=== PATIENT | female | born 1955 | race Caucasian/White ===

== ENCOUNTER → 2022-05-25 | Outpatient (CLI) | payer MEDICARE, SELFPAY ==
[2022-05-25] MEDS: Methacholine Chloride 18 ml neb kit INHALATION (13:13)
--- NOTE | 2022-05-27 08:01 | BRONCHALL ---
Bronchoprovocation Challenge Bronchoprovocation Challenge Bronchoprovocation Challenge: INTRODUCTION: The patient is a 67-year-old female that presents for a bronchoprovocation challenge secondary to a diagnosis of chronic cough. INTERPRETATION: Initial spirometry did not show any large airways obstructive ventilatory defect and preserved airflows throughout. The patient was then given progressively increasing doses of methacholine in a standardized fashion. At no point during testing did the patient's FEV1 drop to the threshold criteria to be considered a positive test. IMPRESSION: Negative methacholine inhalation challenge.
== END | disposition home or self-care (01) ==
PROVIDERS: PCP Family Medicine
DX: R05.3 Chronic cough (principal)
CPT/HCPCS: 94070; 95070

== ENCOUNTER 2022-12-20 09:04 | Day surgery (SDC) | payer MEDICARE, SELFPAY ==
--- NOTE | 2022-12-17 | IMM_PTH ---
PATIENT: SILVA LEBLANC LOC: EN U#:[id number] AGE/SX: 67/F ROOM: RE12/20/[address]: Dr. Devin Oneill DO : 1955 BED: DIS: 12/20/2022 SPEC #: [id number] RECD: 12/20/22 14:52 STATUS: FREEDOM REQ #: [id number] RU: 12/17/22 00:[address]: Devin Oneill DEPT: IMMUNOHISTOCHEMISTRY RECD BY: Romina Ponce ENTERED: 12/20/22 14:52 SP TYPE: IMMUNO OTHR DR: Dr. Timoteo Lemus MD Tissues: Gastric mucous membrane Procedures: H Pylori (initial) P53 (add) KI-67 (initial) PHYSICIAN & INSTITUTION [place] [id number] SPECIMEN INFORMATION: Tissue Source: B. Gastric antrum, C. Distal esophagus Clinical Info: GERD,cough Specimen Number: [id number] CPT code: 48890n8, 93915 METHODOLOGY: Deparaffinized sections of prefer/formalin-fixed tissue or PAP/DQ stained slides are incubated with monoclonal/polyclonal antibodies/oligonucleotide probes. Localization is made via biotin free immunoperoxidase method. Appropriate controls are performed and reacted as expected. Results on target cell population are indicated in the following table: RESULTS: ANTIBODY / CLONE RESULT Block B H Pylori (polyclonal) negative Block C P53 (DO-7) negative, wild type Ki-67 (30-9) negative These tests were developed and their performance characteristics determined by [facility]. They may not have been cleared or approved by the U.S. Food and Drug Administration. The FDA has determined that such clearance or approval is not necessary. The above immunohistochemical/dualISH markers are ordered and reviewed by the Pathologist. INTERPRETATION: B. Gastric antrum, biopsy: Negative for Helicobacter pylori organisms. C. Esophageal mucosa, biopsy: No evidence of dysplasia AM:mark 12/22/22
[2022-12-20 09:36] VITALS: BP 123/91; PULSE 89; RESP 16; TEMP 36.7; O2SAT 95; BMI 26.4
--- NOTE | 2022-12-20 09:51 | PCM.HP.BLA ---
History and Physical Date of Admission: 12/20/22 SILVA LEBLANC, is a 67 F who presents to the office today for chronic cough. Cough started at least 2 yrs ago. She was referred by [facility] Pulmonology to be evaluated for the possibility of GERD or EOE or other GI issue as cause of cough. Not usually productive, no hemoptysis. She ran out of rx PPI at the end of August, it controlled the epigastric burning but not the cough. Now takes famotidine 20 mg since running out of PPI, typically takes it once a day, it is effective unless she has red sauce and wine. No dysphagia. No nausea, vomiting. No abdominal pain. No diarrhea, constipation, melena, hematochezia. She is overdue for colonoscopy, was due 2 yrs ago for 10-yr colonoscopy. ROS Const Constitutional: No fatigue ENT ENT: No difficulty swallowing Gastro GI: Positive for bloating, heartburn and excessive flatus; No abdominal pain, belching, change in bowel habits, change in stool character, coffee ground emesis, constipation, cramping, diarrhea, difficulty swallowing, feeling full early, incontinent of stools, Vomiting blood/hematemesis, Blood in stool, loose stools, Black,tarry stools, nausea/dyspepsia, pain with swallowing, vomiting or other Musc Musculoskeletal: Positive for joint pain, joint swelling, stiffness and Arthritis Skin Skin: No yellowing of the eye or itchy eyes Psych Psychiatric: No anxiety and No depression Endo Endocrine: No fatigue Aller/Imm Allergy/Immunologic: No itchy eyes Evelio/Lymp Hematologic/Lymphatic: Positive for easy bruising; No easy bleeding Exam Const General: cooperative, healthy appearing and comfortable Orientation: alert, awake and oriented x3 Resp Effort & Inspection: normal respiratory effort Other: intermittent cough Quality Reporting Tobacco Screening ([facility]) Smoking Status: Former smoker Assessment and Plan Assessment and Plan (1) GERD (gastroesophageal reflux disease): Status: Chronic Plan: 67 yr old female with chronic cough, ?due to reflux or EOE EGD as well as screening colonoscopy Continue famotidine for heartburn/epigastric burning, cough didn't resolve on PPI (2) Cough: Status: Chronic Plan: as above I have examined the patient and the H&P has been reviewed. There are no clinical changes since date of exam.
--- NOTE | 2022-12-20 10:15 | EGD_PTH ---
PATIENT: SILVA LEBLANC LOC: EN U#:[id number] AGE/SX: 67/F ROOM: RE12/20/[address]: Dr. Devin Oneill DO : 1955 BED: DIS: 12/20/2022 SPEC #: [id number] RECD: 12/20/22 10:55 STATUS: FREEDOM RELaina #: [id number] RU: 12/20/22 10:[address]: Devin Oneill DEPT: SURGICAL PATHOLOGY RECD BY: Nicky Choi ENTERED: 12/20/22 11:42 SP TYPE: EGD BIOPSY OT DR: Dr. Timoteo Lemus MD Tissues: A - Duodenum, NOS B - Gastric mucous membrane C - Esophagus, NOS Procedures: Special Stain Group II Surgery Specimen Level IV Alcian Blue/PAS (control) HEADER OPERATION: Colonoscopy, EGD biopsy PRE-OP DIAGNOSIS: GERD, Cough TISSUE SUBMITTED: A. Duodenum, B. Gastric antrum, C. Distal esophagus MICROSCOPIC DIAGNOSIS A. Duodenum, biopsy: No pathologic change. B. Gastric antrum, biopsy: Chronic gastritis. See Comment. C. Distal esophagus, biopsy: Gastro esophageal junction with chronic inflammation. Focal goblet cell metaplasia. No evidence of dysplasia. See Comment. AM;am 12/21/22 COMMENT B. Results for H.pylori organism ([id number]) will be reported separately. C. Alcian blue stain with matched control supports the diagnosis. Immunohistochemistry ([id number]) supports the diagnosis. MICROSCOPIC DESCRIPTION Slides are reviewed. GROSS DESCRIPTION A. Received is one container labeled with the patient name and designated duodenum. The specimen consists of two irregular fragments of light muir soft tissue that in aggregate measure 0.6 x0.3] x 0.1 cm. The specimen is totally submitted in one cassette. B. Received is one container labeled with the patient name and designated gastric antrum. The specimen consists of two irregular fragments of light muir soft tissue that in aggregate measure 0.8 x 0.3 x 0.1 cm. The specimen is totally submitted in one cassette. C. Received is one container labeled with the patient name and designated distal esophagus. The specimen consists of two irregular fragments of light muir soft tissue that in aggregate measure 0.8 x 0.4 x 0.1 cm. The specimen is totally submitted in one cassette. / 12/20/22 CPT:63334j7, 59337
[2022-12-20 10:50] VITALS: BP 105/64; BP 123/91; PULSE 86; RESP 18; TEMP 36.2; O2SAT 99
[2022-12-20 10:55] VITALS: BP 109/59; BP 123/91; PULSE 88; RESP 18; O2SAT 98
--- NOTE | 2022-12-20 10:58 | OP.CCLET_ITS ---
12/20/2022 Timoteo Lemus Re : Upper GI endoscopy procedure for Cata Khalil Allan This procedure was performed on Tuesday, December 20, 2022. My impressions and recommendations are as follows: Impressions : - Z-line irregular, 38 cm from the incisors. Biopsied. - Erythematous mucosa in the gastric body and antrum. Biopsied. - No gross lesions in the duodenal bulb. Biopsied. Recommendations : - Discharge patient to home. - Resume previous diet. - Continue present medications. - Await pathology results. - Food allergy testing My findings are described in the full procedure note, which is enclosed. If I can be of further assistance, please feel free to contact me at . Sincerely, Devin Oneill, 12/20/2022 10:57:51 AM This report has been signed electronically.
--- NOTE | 2022-12-20 10:58 | OP.EGD_ITS ---
Patient Name: Cata Castro Procedure Date: 12/20/2022 10:20 AM Date of : 1955 Age: 67 Procedure: Upper GI endoscopy Indications: Chronic cough Providers: Devin Oneill DO Medicines: Monitored Anesthesia Care Patient Profile: This is a 67 year old female. Refer to note in patient chart for documentation of history and physical. Patient has symptoms. Complications: No immediate complications. Procedure: Pre-Anesthesia Assessment: - Prior to the procedure, a History and Physical was performed, and patient medications and allergies were reviewed. The patient is competent. The risks and benefits of the procedure and the sedation options and risks were discussed with the patient. All questions were answered and informed consent was obtained. Patient identification and proposed procedure were verified by the physician. Mental Status Examination: normal. Prophylactic Antibiotics: The patient does not require prophylactic antibiotics. Prior Anticoagulants: The patient has taken no previous anticoagulant or antiplatelet agents. After reviewing the risks and benefits, the patient was deemed in satisfactory condition to undergo the procedure. The anesthesia plan was to use monitored anesthesia care (MAC). Immediately prior to administration of medications, the patient was re-assessed for adequacy to receive sedatives. The heart rate, respiratory rate, oxygen saturations, blood pressure, adequacy of pulmonary ventilation, and response to care were monitored throughout the procedure. The physical status of the patient was re-assessed after the procedure. After obtaining informed consent, the endoscope was passed under direct vision. Throughout the procedure, the patient's blood pressure, pulse, and oxygen saturations were monitored continuously. The pediatric colonoscope was introduced through the mouth, and advanced to the second part of duodenum. The upper GI endoscopy was accomplished without difficulty. The patient tolerated the procedure well. Scope In: 10:31:14 AM Scope Out: 10:35:09 AM Total Procedure Duration Time 0 hours 3 minutes 55 seconds Findings: The Z-line was irregular and was found 38 cm from the incisors. Biopsies were taken with a cold forceps for histology. Verification of patient identification for the specimen was done. Patchy mildly erythematous mucosa without bleeding was found in the gastric body and in the gastric antrum. Biopsies were taken with a cold forceps for histology. Verification of patient identification for the specimen was done. Estimated blood loss was minimal. No gross lesions were noted in the duodenal bulb. Biopsies were taken with a cold forceps for histology. Verification of patient identification for the specimen was done by the physician. Estimated blood loss was minimal. Impression: - Z-line irregular, 38 cm from the incisors. Biopsied. - Erythematous mucosa in the gastric body and antrum. Biopsied. - No gross lesions in the duodenal bulb. Biopsied. Recommendation: - Discharge patient to home. - Resume previous diet. - Continue present medications. - Await pathology results. - Food allergy testing Procedure Code(s): --- Professional --- 56548, Esophagogastroduodenoscopy, flexible, transoral; with biopsy, single or multiple CPT copyright 2017 [employer] [place] [employer]. All rights reserved. The codes documented in this report are preliminary and upon inpatient coder review may be revised to meet current compliance requirements. Devin Oneill DO 12/20/2022 10:57:51 AM This report has been signed electronically. Number of Addenda: 0 Note Initiated On: 12/20/2022 10:20 AM
[2022-12-20 11:00] VITALS: BP 110/64; BP 123/91; PULSE 86; RESP 18; O2SAT 95
--- NOTE | 2022-12-20 11:00 | OP.CCLET_ITS ---
12/20/2022 Timoteo Lemus Re : Colonoscopy procedure for Cata Castro Deajessenia Lemus This procedure was performed on Tuesday, December 20, 2022. My impressions and recommendations are as follows: Impressions : - Diverticulosis in the recto-sigmoid colon, in the sigmoid colon and in the descending colon. - The examination was otherwise normal on direct and retroflexion views. - No specimens collected. Recommendations : - Discharge patient to home. - Resume previous diet. - Continue present medications. - Repeat colonoscopy in 10 years for surveillance. My findings are described in the full procedure note, which is enclosed. If I can be of further assistance, please feel free to contact me at . Sincerely, Devin Oneill, 12/20/2022 11:00:01 AM This report has been signed electronically.
--- NOTE | 2022-12-20 11:00 | OP.COLON_ITS ---
Patient Name: Cata Castro Procedure Date: 12/20/2022 10:35 AM Date of : 1955 Age: 67 Procedure: Colonoscopy Indications: Screening for colorectal malignant neoplasm Providers: Devin Oneill DO Medicines: Monitored Anesthesia Care Patient Profile: This is a 67 year old female. Refer to note in patient chart for documentation of history and physical. Patient has symptoms. Last Colonoscopy: more than 10 years ago. Complications: No immediate complications. Procedure: Pre-Anesthesia Assessment: - Prior to the procedure, a History and Physical was performed, and patient medications and allergies were reviewed. The patient is competent. The risks and benefits of the procedure and the sedation options and risks were discussed with the patient. All questions were answered and informed consent was obtained. Patient identification and proposed procedure were verified by the physician. Mental Status Examination: normal. Prophylactic Antibiotics: The patient does not require prophylactic antibiotics. Prior Anticoagulants: The patient has taken no previous anticoagulant or antiplatelet agents. After reviewing the risks and benefits, the patient was deemed in satisfactory condition to undergo the procedure. The anesthesia plan was to use monitored anesthesia care (MAC). Immediately prior to administration of medications, the patient was re-assessed for adequacy to receive sedatives. The heart rate, respiratory rate, oxygen saturations, blood pressure, adequacy of pulmonary ventilation, and response to care were monitored throughout the procedure. The physical status of the patient was re-assessed after the procedure. After I obtained informed consent, the scope was passed under direct vision. Throughout the procedure, the patient's blood pressure, pulse, and oxygen saturations were monitored continuously. The pediatric colonoscope was introduced through the anus and advanced to the cecum, identified by appendiceal orifice and ileocecal valve. The colonoscopy was performed without difficulty. The patient tolerated the procedure well. The quality of the bowel preparation was adequate. Scope In: 10:36:53 AM Scope Withdrawal Time 0 hours 6 minutes 42 seconds Scope Out: 10:46:15 AM Total Procedure Duration Time 0 hours 9 minutes 22 seconds Findings: The perianal and digital rectal examinations were normal. Multiple small and large-mouthed diverticula were found in the recto-sigmoid colon, sigmoid colon and descending colon. The exam was otherwise without abnormality on direct and retroflexion views. Impression: - Diverticulosis in the recto-sigmoid colon, in the sigmoid colon and in the descending colon. - The examination was otherwise normal on direct and retroflexion views. - No specimens collected. Recommendation: - Discharge patient to home. - Resume previous diet. - Continue present medications. - Repeat colonoscopy in 10 years for surveillance. Procedure Code(s): --- Professional --- G0121, Colorectal cancer screening; colonoscopy on individual not meeting criteria for high risk CPT copyright 2017 [employer]. All rights reserved. The codes documented in this report are preliminary and upon master planner review may be revised to meet current compliance requirements. Devin Oneill DO 12/20/2022 11:00:01 AM This report has been signed electronically. Number of Addenda: 0 Note Initiated On: 12/20/2022 10:35 AM
[2022-12-20 11:06] VITALS: BP 123/91; BP 124/72; PULSE 87; RESP 18; TEMP 36.5; O2SAT 97
[2022-12-20 11:10] VITALS: BP 123/91
[2022-12-20 13:17] LABS: Erythrocyte Sedimentation Rate 8 mm/hr (0-30)
[2022-12-20 13:20] LABS: CRP 6.77 mg/L (0.0-3.0)
[2022-12-21 14:09] LABS: Cytoplasmic Ab (C-ANCA) <1:20 titer (Neg:<1:20); Perinuclear Ab (P-ANCA) <1:20 titer (Neg:<1:20)
[2022-12-23 00:07] LABS: Anti-Centromere B Ab <0.2 AI (0.0-0.9); Anti-Chromatin <0.2 AI (0.0-0.9); Anti-Jo <0.2 AI (0.0-0.9); Anti-Scleroderma-70 AB <0.2 AI (0.0-0.9); Anti-dsDNA Ab 1 IU/mL (0-9); Beef <0.10 kU/L (Class 0); Chocolate <0.10 kU/L (Class 0); Corn <0.10 kU/L (Class 0); Egg, Whole <0.10 kU/L (Class 0); Milk (Cow) <0.10 kU/L (Class 0); Peanut 0.15 kU/L (Class 0/I); Pork <0.10 kU/L (Class 0); RNP Ab <0.2 AI (0.0-0.9); SJOGREN'S Anti-SS-A test 0.2 AI (0.0-0.9); SJOGREN'S Anti-SS-B test < 0.2 AI (0.0-0.9); Smith Ab <0.2 AI (0.0-0.9); Soybean <0.10 kU/L (Class 0); Wheat <0.10 kU/L (Class 0)
== END 2022-12-20 11:25 | disposition home or self-care (01) ==
LOC: EN 09:09 → AC 09:26
PROVIDERS: PCP Family Medicine; Referring Provider Family Medicine; Visit Provider Internal Medicine Gastroenterology
PROC: 0DJD8ZZ Inspection of Lower Intestinal Tract, Via Natural or Artificial Opening Endoscopic (ICD-10-PCS; CPT 45378; principal; 2022-12-20 10:10)
DX: Z12.11 Encounter for screening for malignant neoplasm of colon (principal); K21.00 Gastro-esophageal reflux disease with esophagitis, without bleeding; K57.30 Diverticulosis of large intestine without perforation or abscess without bleeding; Z87.891 Personal history of nicotine dependence; K29.50 Unspecified chronic gastritis without bleeding; K22.70 Barrett's esophagus without dysplasia; Z79.899 Other long term (current) drug therapy; E03.9 Hypothyroidism, unspecified; Z79.890 Hormone replacement therapy; Z90.49 Acquired absence of other specified parts of digestive tract
CPT/HCPCS: G0121; 43239; 36415; 85652; 86003; 86005; 86140; 86225; 86235; 86256; 88305; 88313; 88341; 88342; J7120; J2405

== ENCOUNTER 2024-05-20 23:19 | Emergency (ER) | payer MEDICARE, SELFPAY ==
[2024-05-20 23:20] VITALS: BP 163/105; PULSE 116; RESP 22; TEMP 36.6; O2SAT 98; BMI 28.4
[2024-05-20 23:25] VITALS: BP 163/105; PULSE 112; RESP 21; TEMP 36.6; O2SAT 97
[2024-05-20 23:50] VITALS: PULSE 111; RESP 21; O2SAT 96
--- NOTE | 2024-05-20 23:50 | EKG12_ITS ---
Test Reason : DYSP Blood Pressure : */* mmHG Vent. Rate : 115 BPM Atrial Rate : 115 BPM P-R Int : 202 ms QRS Dur : 80 ms QT Int : 312 ms P-R-T Axes : 56 7 52 degrees QTcB Int : 431 ms Sinus tachycardia Otherwise normal ECG Confirmed by KEN MOLINA, RIKA ([id number]), tape editor ANANDA IBARRA ([id number]) on 05/22/2024 8:05:11 AM Referred By: Confirmed By: RIKA ROGERS MD
--- NOTE | 2024-05-20 23:50 | CT_ITS ---
STUDY: CTA CHEST REASON FOR EXAM: Female, 69 years old patient with questionable pulmonary embolus (PE) RADIATION DOSAGE (If Supplied By Facility): CTDIvol = ( 6.54 ) mGy, DLP = ( 271.86 ) mGycm TECHNIQUE: The examination was performed with the intravenous administration of 100 mL of IV Isovue 370. Post-processing of the angiographic images was performed, with multiplanar reformation and 3D reconstruction. Individualized dose optimization techniques were used for this CT. COMPARISON: CT chest dated June 11, 2009. FINDINGS: Normal enhancement of the main pulmonary artery and right and left pulmonary arteries. Normal enhancement of the bilateral peripheral pulmonary arteries. There is no demonstrated pulmonary embolism. Normal thoracic aorta and visualized great vessels. There is no demonstrated aortic dissection. Normal heart and pericardium. Normal mediastinum. Normal hilar regions. Normal visualized trachea and bronchi. The lungs are well expanded. There is a right middle lobe pulmonary nodule measuring 7.5 mm in size. There is slightly larger than it was on the previous CT. The lungs otherwise appear to be clear. Normal pleura. Normal chest wall structures. Normal osseous structures. There are gallstones. CT/CTA Chest W/WO Contrast IMPRESSION: 1. No CTA demonstrated pulmonary embolism or arterial dissection. 2. Cholelithiasis. 3. Right middle lobe nodule. Suggest follow-up as per Fleischner''s criteria. Fleischner Society Recommendations for Follow-up and Management of Nodules Smaller than 8 mm Detected Incidentally at Nonscreening CT. Nodule size > 6-8 mm: Low-Risk Patient - Initial follow-up CT at 6-12 months then at 18-24 months if no change. High-Risk Patient - Initial follow-up CT at 3-6 months then at 9-12 and 24 months if no change. Low-Risk = Minimal or absent history of smoking and of other known risk factors. 1. High-Risk = History of smoking or of other known risk factors. Electronically Signed: Rachael Milton MD at 1:39 EST ,
[2024-05-20] MEDS: Aspirin 325 MG Tablet PO (23:58)
[2024-05-21] VITALS (22 sets, daily range): BP systolic 105–138; BP diastolic 54–80; PULSE 92–122; RESP 9–27; TEMP 36.5–36.7; O2SAT 94–97
[2024-05-21 00:02] LABS: Absolute Lymphocyte Count 1.43 X10^3/uL (0.83-4.51); Basophil# 0.04 X10^3/uL; Basophil% 0.3 % (0-1); Eosinophil# 0.14 X10^3/uL; Hematocrit 37.4 % (37-47); Hemoglobin 12.4 g/dL (12.0-15.0); Lymphocyte # 1.43 X10^3/ul (0.83-4.51); Lymphocyte % 9.8 % (19-41); Mean Corp Hgb Conc 33.2 g/dL (32-36); Mean Corpuscular Hgb 30.2 pg (27.0-32.0); Mean Corpuscular Volume 91.2 fL (81-99); Monocyte# 0.74 X10^3/uL; Monocyte% 5.1 % (0-10); NRBC Flagged by Analyzer 0 % (0-5); Platelet Count 282 K/mm3 (150-450); RBC Distribution Width CV 13.1 % (11.6-14.6); RBC Distribution Width SD 43.4 fl (35.1-43.9); White Blood Count 14.6 K/mm3 (4.4-11.0)
[2024-05-21] MEDS: Nitroglycerin SL (ED/IMG/CATH) 0.4 MG TABLET SL ×2 (00:03→00:09)
[2024-05-21 00:11] LABS: Partial Thromboplast Time 23.3 Seconds (24.1-36.2)
[2024-05-21 00:19] LABS: Anion Gap 8 (5-15); BUN 19 mg/dL (7-18); BUN/Creat Ratio 20.4 RATIO (10-20); Calcium,Total 9.4 mg/dL (8.5-10.1); Chloride 104 mmol/L (98-107); Creatinine, Serum 0.93 mg/dL (0.55-1.02); EST Glomerular Filtration Rate 63 mL/min (>60); Est Glom Filt Rate - Afr Amer 77 mL/min (>60); Glucose 136 mg/dL (74-106); Magnesium 1.9 mg/dL (1.6-2.6); Potassium 3.7 mmol/L (3.5-5.1); Sodium Level 138 mmol/L (136-145); Troponin-I HS < 3 pg/mL (3.0-54.0)
[2024-05-21 00:44] LABS: BNP,B-Type NATRIURETIC PEPTIDE 25.7 pg/mL (0-100)
[2024-05-21 02:04] LABS: Troponin-I HS < 3 pg/mL (3.0-54.0)
--- NOTE | 2024-05-21 02:06 | EX.ED.DYSGE1 ---
HPI History of Present Illness Chief Complaint: Shortness of Breath Informant: patient and spouse/S.O. Narrative Narrative: Patient is a 69-year-old female with past medical history of GERD and hypothyroidism as well as known pulmonary nodules. She states she was at home this evening when she noticed a sensation of shortness of breath. She states it felt like she cannot take a deep breath in. She states that she noticed some pain in the lower throat/upper chest and folic it radiated towards her right arm. She denies any previous history of cardiovascular disease and she denies any previous history of DVT or PE. She states she has not been sick in any way and denies any history of asthma or emphysema or COPD. However as she had persistent shortness of breath she was concerned this could be cardiac in nature and therefore comes in for evaluation [facility] Medical History (Updated 05/21/24 @ 07:[address] Mauri Pemberton, DO) Wears partial dentures Wears glasses Post-menopausal Alcohol use Arthritis Anemia Easy bruising Injury of back Gastric reflux Pulmonary scarring Former smoker Hx of thyroid irradiation History of edema History of stress test Lung nodules Cough Vitamin D deficiency Venous insufficiency Osteopenia Nephrolithiasis Hypothyroidism Migraine Graves disease GERD (gastroesophageal reflux disease) Fibrocystic breast disease Home Medications ?Medication ?Instructions ?Recorded ?Last Taken ?Type omeprazole 20 mg capsule,delayed 20 mg PO DAILY 07/16/22 Unknown History release thyroid (pork) 15 mg tablet 15 mg PO DAILY 07/16/22 Unknown History ([place] Thyroid) thyroid (pork) 30 mg tablet 30 mg PO BID 07/16/22 Unknown History ([place] Thyroid) cetirizine 10 mg tablet 10 mg PO DAILY PRN allergy symptoms 12/16/22 Unknown History lactobacillus combination no.4 3 3,000 mmu cells PO DAILY 12/16/22 Unknown History billion cell capsule (Probiotic) multivitamin (Daily Multi-Vitamin 1 tab PO DAILY 12/16/22 Unknown History tablet) cholecalciferol (vitamin D3) 25 50 mcg PO DAILY 05/20/24 Unknown History mcg (1,000 unit) capsule (Vitamin D3) ondansetron 4 mg disintegrating 4 mg PO TID PRN nausea and 05/21/24 Unknown Rx tablet vomiting #21 tabs oxycodone 5 mg tablet 5 mg PO Q6H PRN pain 3 days #12 12/09/24 Unknown Rx tabs Allergy/AdvReac Type Severity Reaction Status Date / Time sodium hypochlorite solution Allergy Severe Anaphylaxis Verified 05/21/24 00:22 levofloxacin (From Levaquin) AdvReac Severe GI UPSET Verified 05/20/24 23:20 Surgical History History of esophagogastroduodenoscopy (EGD) Hx of colonoscopy Hx of oral surgery Hx of breast biopsy Hx of appendectomy Social History Smoking Status: Former smoker how long ago did patient quit smokin YRS alcohol intake: current alcohol intake frequency: holidays/special occasions only ROS ROS ED Constitutional Constitutional ED: Denies chills or fever(s) Eyes Eyes: Denies blurry vision or change in vision ENT ENT ED: Denies rhinorrhea or sore throat Cardiovascular Cardiovascular: Denies chest pain, palpitations or racing heartbeat Respiratory/Chest Respiratory/Chest: Reports dyspnea; Denies cough Gastrointestinal Gastrointestinal: Denies abdominal pain, diarrhea, nausea or vomiting Genitourinary Genitourinary ED: Denies dysuria Musculoskeletal Musculoskeletal: Denies back pain Integumentary Denies rash Neurologic Neurologic: Denies headache(s) Hematologic/Lymphatic Hematologic/Lymphatic: Denies easy bleeding or easy bruising EXAM Physical Exam Const Vital Signs: 05/20/24 23:20 05/20/24 23:25 05/20/24 23:28 Temperature 98 F 98 F Temperature Source Oral Oral Pulse Rate 116 H 112 H Respiratory Rate 22 H 21 H Respiratory Effort Short of Breath Blood Pressure 163/105 H 163/105 H Blood Pressure Mean 124 124 Pulse Ox 98 97 Oxygen Delivery Method Room Air Room Air 05/20/24 23:50 05/21/24 00:00 05/21/24 00:02 Temperature Temperature Source Pulse Rate 111 H 108 H 103 H Respiratory Rate 21 H 14 12 Respiratory Effort Blood Pressure 137/80 H Blood Pressure Mean 96 Pulse Ox 96 96 Oxygen Delivery Method 05/21/24 00:03 05/21/24 00:03 05/21/24 00:05 Temperature Temperature Source Pulse Rate 105 H 105 H 117 H Respiratory Rate 16 24 H Respiratory Effort Blood Pressure 137/80 H 138/73 H 133/74 H Blood Pressure Mean 92 93 Pulse Ox 96 95 Oxygen Delivery Method 05/21/24 00:07 05/21/24 00:09 05/21/24 00:10 Temperature Temperature Source Pulse Rate 120 H 102 H Respiratory Rate 27 H Respiratory Effort Blood Pressure 117/72 117/72 131/67 H Blood Pressure Mean 81 85 Pulse Ox 96 Oxygen Delivery Method 05/21/24 00:13 05/21/24 00:18 05/21/24 00:25 Temperature 98.1 F Temperature Source Oral Pulse Rate 119 H 122 H 110 H Respiratory Rate 18 26 H 19 H Respiratory Effort Blood Pressure 117/76 117/76 Blood Pressure Mean 88 89 Pulse Ox 96 97 Oxygen Delivery Method Room Air 05/21/24 00:30 05/21/24 00:32 05/21/24 00:45 Temperature Temperature Source Pulse Rate 102 H 98 Respiratory Rate 17 18 Respiratory Effort Blood Pressure 113/66 115/63 Blood Pressure Mean 74 77 Pulse Ox 95 96 Oxygen Delivery Method 05/21/24 01:00 05/21/24 01:00 05/21/24 01:17 Temperature 97.7 F L Temperature Source Oral Pulse Rate 97 105 H Respiratory Rate 12 16 Respiratory Effort Blood Pressure 105/68 105/68 Blood Pressure Mean 80 80 Pulse Ox 95 97 97 Oxygen Delivery Method Room Air 05/21/24 01:30 05/21/24 01:45 05/21/24 02:00 Temperature 97.9 F Temperature Source Oral Pulse Rate 98 99 93 Respiratory Rate 24 H 12 22 H Respiratory Effort Blood Pressure 128/54 H Blood Pressure Mean 78 Pulse Ox 94 96 95 Oxygen Delivery Method Room Air 05/21/24 02:00 05/21/24 02:15 05/21/24 02:30 Temperature Temperature Source Pulse Rate 99 92 93 Respiratory Rate 22 H 9 L 26 H Respiratory Effort Blood Pressure Blood Pressure Mean Pulse Ox 94 97 95 Oxygen Delivery Method 05/21/24 02:36 05/21/24 02:39 Temperature 97.7 F L Temperature Source Pulse Rate 93 100 Respiratory Rate 13 21 H Respiratory Effort Blood Pressure 128/54 H 128/54 H Blood Pressure Mean 74 78 Pulse Ox 96 96 Oxygen Delivery Method Positive well nourished and well developed General Appearance ED: well developed; Negative for pallor HEENT Reports moist mucous membranes HEENT Narrative: No tongue or lip swelling no oral lesions no airway edema or compromise No trismus or change in voice or difficulty with secretions no obvious abscess noted Eyes PERRL and EOMs intact bilaterally Neck supple and no JVD Neck Narrative: No nuchal rigidity or meningeal signs No crepitance palpated Chest Wall palpation of chest normal Resp normal respiratory effort and clear to auscultation bilaterally Resp Narrative: Breath sounds are diminished throughout but overall clear to auscultation Cardio regular rate and regular rhythm Rate: other Other Details: Heart is regular rate and rhythm without murmurs rubs or gallop Radial and carotid pulses are equal and symmetric GI normal to inspection, nondistended, normoactive bowel sounds, non-tender, non-distended and no masses GI Narrative: No voluntary guarding or rigidity or pulsatile mass Auscultation: normoactive bowel sounds Palpation: soft Extremity normal to inspection Extremity Narrative: No asymmetric edema no pitting edema negative Homans' sign bilaterally Neuro oriented x3, CN's II-XII intact bilaterally and no sensory deficits noted Sensorium / Orientation: alert Motor Exam: strength 5/5 throughout Psych mental status grossly normal Skin no rashes or lesions noted General Skin Exam: Negative for jaundice or pallor MDM MDM MDM Narrative Medical decision making narrative: Patient arrived to the ER hypertensive and tachycardic but otherwise with stable vitals. She reported sensation of shortness of breath with some lower throat/upper chest discomfort radiating into her right arm. There is concern this could be related to atypical cardiovascular disease. Patient also could have potential pneumonia pneumothorax pleural effusion or pulmonary embolus. Secondary to this basic blood work was obtained. With her known history of pulmonary nodules and her shortness of breath sensation I did elect to perform a CTA of the chest to rule out PE dissection pneumonia or pneumothorax. CTA revealed her chronic pulmonary nodules but otherwise no PE or dissection or pneumonia. It did incidentally note gallstones but did not mention any signs of gallbladder wall thickening or pericholecystic fluid. The patient's white count is elevated at 14.6 but she is afebrile and this very well could be stress response as CT of the chest reveals no signs of infection. Also had low concern for acute cholecystitis despite her white count and CT reading of gallstones as she does not have any abdominal pain with palpation and her liver enzymes are normal. The patient's initial and delta troponin were less than 3 going against acute coronary syndrome. Therefore at this time as patient does not have signs of ischemia on her EKG PE and dissection have been ruled out with CTA and her troponins are normal I do not feel there is need to keep her in the hospital. I cannot perform a gallbladder ultrasound at this time of night but as this is a potentially atypical presentation for biliary colic she will be given a order form to have an ultrasound done as an outpatient. This plan of care was discussed with both the patient and and they are agreeable to it History & Record Review Discussion w/independent historian: Patient and Significant other Lab Data Attestation: I reviewed the patient's lab results. Labs: Laboratory Results - last 24 hr 05/20/24 05/21/24 23:27 01:37 WBC 14.6 H RBC 4.10 L Hgb 12.4 Hct 37.4 MCV 91.2 MCH 30.2 MCHC 33.2 RDW Std Deviation 43.4 RDW Coeff of Omar 13.1 Plt Count 282 MPV 10.0 Immature Gran % (Auto) 1.800 H Neut % (Auto) 82.0 H Lymph % (Auto) 9.8 L [place] % (Auto) 5.1 Eos % (Auto) 1.0 Baso % (Auto) 0.3 Absolute Neuts (auto) 12.0 H Absolute Lymphs (auto) 1.43 Nucleated RBC % 0 PT 13.0 INR 1.0 APTT 23.3 L Sodium 138 Potassium 3.7 Chloride 104 Carbon Dioxide 26.0 Anion Gap 8 BUN 19 H Creatinine 0.93 Estim Creat Clear Calc 58.80 Est GFR (MDRD) Af Amer 77 Est GFR (MDRD) Non-Af 63 BUN/Creatinine Ratio 20.4 H Glucose 136 H Calcium 9.4 Magnesium 1.9 Total Bilirubin 0.90 Direct Bilirubin 0.12 AST 41 H ALT 18 Alkaline Phosphatase 92 Troponin I High Sens < 3 L < 3 L B-Natriuretic Peptide 25.7 Total Protein 7.1 Albumin 3.3 Globulin 3.8 Lipase < 10 L Radiography Diagnostic Testing: Clinical Impression(s) from Imaging Studies Chest CTA 05/20/24 23:50 IMPRESSION: 1. No CTA demonstrated pulmonary embolism or arterial dissection. 2. Cholelithiasis. 3. Right middle lobe nodule. Suggest follow-up as per Fleischner''s criteria. Fleischner Society Recommendations for Follow-up and Management of Nodules Smaller than 8 mm Detected Incidentally at Nonscreening CT. Nodule size > 6-8 mm: Low-Risk Patient - Initial follow-up CT at 6-12 months then at 18-24 months if no change. High-Risk Patient - Initial follow-up CT at 3-6 months then at 9-12 and 24 months if no change. Low-Risk = Minimal or absent history of smoking and of other known risk factors. 1. High-Risk = History of smoking or of other known risk factors. Electronically Signed: Rachael Milton MD at 1:39 EST , Discharge Plan Triage Chief Complaint: Shortness of Breath ED Provider: Mauri Pemberton Dx/Rx/DC Orders Clinical Impression: Cholelithiasis, Dyspnea, Pulmonary nodule, GERD (gastroesophageal reflux disease) Instructions: Gallstones Dc, ED Dyspnea Prescriptions: New oxycodone 5 mg tablet 5 mg PO Q6H PRN (Reason: pain) 3 Days Qty: 12 0RF ondansetron 4 mg tablet,disintegrating 4 mg PO TID PRN (Reason: nausea and vomiting) Qty: 21 0RF No Action omeprazole 20 mg capsule,delayed release(DR/EC) 20 mg PO DAILY thyroid (pork) [[place] Thyroid] 30 mg tablet 30 mg PO BID thyroid (pork) [[place] Thyroid] 15 mg tablet 15 mg PO DAILY Patient Comments: take with 30 mg in morning multivitamin [Daily Multi-Vitamin] Tablet 1 tab PO DAILY Probiotic 3 billion cell capsule 3,000 mmu cells PO DAILY Rx Instructions: administer with a meal cetirizine 10 mg tablet 10 mg PO DAILY PRN (Reason: allergy symptoms) Patient Comments: take 1 tablet by mouth once daily cholecalciferol (vitamin D3) [Vitamin D3] 25 mcg (1,000 unit) capsule 50 mcg PO DAILY Other Ambulatory Orders: Gallbladder (Routine) Facility: [facility] - Location: [facility] Ordered By: Dr. Mauri Pemberton Primary Care Provider: Timoteo Lemus Referrals: Timoteo Lemus MD [Primary Care Provider] - Activity Restrictions/Additional Instructions: Your workup today showed no sign of lung infection such as pneumonia no blood clot or hole in the lung. There were no findings of cardiac damage. It did show gallstones and your symptoms may be secondary to this. Therefore obtain your outpatient gallbladder ultrasound to further assess your gallbladder and return to the ER should you have any further concerns or worsening of symptoms Print Language: [place] Disposition Disposition: Home, Self Care Discharge Date/Time: 05/21/24 02:49
[2024-05-21 02:23] LABS: AST(SGOT) 41 U/L (15-37); Alanine Aminotransfer ALT/SGPT 18 U/L (13-56); Albumin, Serum 3.3 g/dL (3.2-5.0); Alkaline Phosphatase 92 U/L (45-117); Bilirubin, Direct 0.12 mg/dL (0.00-0.30); Globulin 3.8 g/dL (2.2-4.2); Lipase < 10 U/L (13-75); Protein, Total 7.1 g/dL (6.4-8.2)
[2024-05-21] MEDS: oxyCODONE 5 MG Tablet PO (02:48)
[2024-05-21] MEDS: Ondansetron ODT 4 MG Tablet PO (02:48)
== END 2024-05-21 02:49 | disposition home or self-care (01) ==
PROVIDERS: Emergency Provider Emergency Medicine; PCP Family Medicine; Visit Provider Emergency Medicine
DX: K80.70 Calculus of gallbladder and bile duct without cholecystitis without obstruction (principal); J44.9 Chronic obstructive pulmonary disease, unspecified; K21.9 Gastro-esophageal reflux disease without esophagitis; R91.1 Solitary pulmonary nodule; E03.9 Hypothyroidism, unspecified; Z79.890 Hormone replacement therapy; Z79.899 Other long term (current) drug therapy; Z87.891 Personal history of nicotine dependence
CPT/HCPCS: 71275; 80048; 80076; 83690; 83735; 83880; 84484; 85025; 85610; 85730; 93005; Q9967; A4216

== ENCOUNTER 2024-05-21 16:01 | Inpatient (IN) | payer MEDICARE, SELFPAY ==
[2024-05-21 16:02] VITALS: BP 151/74; PULSE 129; RESP 16; TEMP 36.8; O2SAT 96; BMI 27.4
[2024-05-21 17:22] LABS: Absolute Neutrophil Count 11.7 X10^3/uL (2.0-7.7); Basophil# 0.05 X10^3/uL; Basophil% 0.4 % (0-1); Eosinophil# 0.02 X10^3/uL; Eosinophils% 0.1 % (0-5); Hematocrit 36.8 % (37-47); Hemoglobin 12.6 g/dL (12.0-15.0); Lymphocyte % 11.3 % (19-41); Mean Corp Hgb Conc 34.2 g/dL (32-36); Mean Corpuscular Hgb 31.4 pg (27.0-32.0); Mean Corpuscular Volume 91.8 fL (81-99); Mean Platelet Vol. 10.1 fl (6.2-12.0); Monocyte# 0.73 X10^3/uL; Monocyte% 5.2 % (0-10); NRBC Flagged by Analyzer 0 % (0-5); Neutrophil # 11.68 X10^3/uL (2.7-7.7); Neutrophil % 82.6 % (47-70); Platelet Count 259 K/mm3 (150-450); RBC Distribution Width CV 13.2 % (11.6-14.6); RBC Distribution Width SD 44.4 fl (35.1-43.9); Red Blood Count 4.01 M/mm3 (4.2-5.4); White Blood Count 14.1 K/mm3 (4.4-11.0)
[2024-05-21 17:39] LABS: ALB/GLOB Ratio 0.8 RATIO (0.9-2.4); AST(SGOT) 15 U/L (15-37); Alanine Aminotransfer ALT/SGPT 18 U/L (13-56); Albumin, Serum 3.7 g/dL (3.2-5.0); Alkaline Phosphatase 101 U/L (45-117); Anion Gap 6 (5-15); BUN 17 mg/dL (7-18); BUN/Creat Ratio 22.7 RATIO (10-20); Calcium,Total 9.7 mg/dL (8.5-10.1); Chloride 104 mmol/L (98-107); Creatinine, Serum 0.75 mg/dL (0.55-1.02); EST Glomerular Filtration Rate 82 mL/min (>60); Est Glom Filt Rate - Afr Amer 99 mL/min (>60); Globulin 4.5 g/dL (2.2-4.2); Glucose 119 mg/dL (74-106); Potassium 3.8 mmol/L (3.5-5.1); Protein, Total 8.2 g/dL (6.4-8.2); Sodium Level 136 mmol/L (136-145)
--- NOTE | 2024-05-21 17:44 | ED.VIS.GI ---
HPI HPI - GI History of Present Illness Chief Complaint: Abd Pain Informant: patient Abdominal Pain/Flank Pain Onset: Yesterday Context: Sudden Onset Timing: Continuous Quality: Sharp Location: RUQ and - (Right chest and right shoulder) Worsened by: - (Laying back) Relieved by: - (Sitting forward) Nausea/Vomiting/Emesis GI Symptom: Positive for Nausea; Negative for Vomiting Diarrhea/Melena/Hematochezia GI Symptom: Negative for Diarrhea, Melena or Hematochezia Associated Symptoms Associated Symptoms: Positive for Frequency; Negative for Dysuria or Hematuria Narrative Narrative: Patient presents with abdominal pain that began last night. Patient states she came to the emergency department last night and was feeling better. Patient was ordered an outpatient ultrasound which was done earlier today. Patient was then referred to the emergency department. Patient states her pain is constant. Patient states the pain is mainly over the right upper abdomen. Patient states it radiates into her chest and into her right shoulder. Patient states it is worse with leaning back and better with sitting forward. Patient admits to some nausea but denies any vomiting. Patient denies any diarrhea, melena, or hematochezia. Patient admits to some urinary frequency but denies any dysuria or hematuria. Patient states last time she had anything to eat or drink was 9:30 PM last night except for some sips of water to take her thyroid medication this morning. [facility] Medical History Wears partial dentures Wears glasses Post-menopausal Alcohol use Arthritis Anemia Easy bruising Injury of back Gastric reflux Pulmonary scarring Former smoker Hx of thyroid irradiation History of edema History of stress test Lung nodules Cough Vitamin D deficiency Venous insufficiency Osteopenia Nephrolithiasis Hypothyroidism Migraine Graves disease GERD (gastroesophageal reflux disease) Fibrocystic breast disease Home Medications ?Medication ?Instructions ?Recorded ?Last Taken ?Type omeprazole 20 mg capsule,delayed 20 mg PO DAILY 07/16/22 Unknown History release thyroid (pork) 15 mg tablet 15 mg PO DAILY 07/16/22 Unknown History ([place] Thyroid) thyroid (pork) 30 mg tablet 30 mg PO BID 07/16/22 Unknown History ([place] Thyroid) cetirizine 10 mg tablet 10 mg PO DAILY PRN allergy symptoms 12/16/22 Unknown History lactobacillus combination no.4 3 3,000 mmu cells PO DAILY 12/16/22 Unknown History billion cell capsule (Probiotic) multivitamin (Daily Multi-Vitamin 1 tab PO DAILY 12/16/22 Unknown History tablet) cholecalciferol (vitamin D3) 25 50 mcg PO DAILY 05/20/24 Unknown History mcg (1,000 unit) capsule (Vitamin D3) ondansetron 4 mg disintegrating 4 mg PO TID PRN nausea and 05/21/24 Unknown Rx tablet vomiting #21 tabs oxycodone 5 mg tablet 5 mg PO Q6H PRN pain 3 days #12 05/21/24 Unknown Rx tabs Allergy/AdvReac Type Severity Reaction Status Date / Time sodium hypochlorite solution Allergy Severe Anaphylaxis Verified 05/21/24 16:02 levofloxacin (From Levaquin) AdvReac Severe GI UPSET Verified 05/21/24 16:02 Surgical History History of esophagogastroduodenoscopy (EGD) Hx of colonoscopy Hx of oral surgery Hx of breast biopsy Hx of appendectomy Social History Smoking Status: Former smoker how long ago did patient quit smokin YRS alcohol intake: current alcohol intake frequency: holidays/special occasions only ROS ROS ED Constitutional Constitutional ED: Reports chills, fever(s) and subjective Eyes Eyes: Denies blurry vision or change in vision ENT ENT ED: Denies rhinorrhea or sore throat Cardiovascular Cardiovascular: Reports chest pain; Denies palpitations Respiratory/Chest Respiratory/Chest: Reports dyspnea; Denies cough Gastrointestinal Gastrointestinal: Denies nausea or vomiting Genitourinary Genitourinary ED: Denies dysuria or hematuria Musculoskeletal Musculoskeletal: Reports back pain and neck pain Integumentary Denies abscess or rash Neurologic Neurologic: Denies headache(s) or weakness Allergic/Immunologic Allergic/Immunologic ED: Denies mouth swelling or urticaria EXAM Physical Exam Const Vital Signs: 05/21/24 16:02 05/21/24 19:00 05/21/24 19:44 Temperature 98.2 F 99.5 F H Temperature Source Oral Pulse Rate 129 H 93 92 Respiratory Rate 16 16 16 Blood Pressure 151/74 H 125/56 H 121/68 H Blood Pressure Mean 99 79 85 Pulse Ox 96 95 95 Oxygen Delivery Method Room Air Room Air Positive well nourished and well developed General Appearance ED: well developed and NAD HEENT Reports moist mucous membranes Neck supple and no JVD Resp normal respiratory effort and clear to auscultation bilaterally Cardio regular rhythm Rate: tachycardic GI non-distended Palpation: soft and tender epigastric, RUQ and Pro's sign; Negative for guarding or rebound tenderness present Neuro CN's II-XII intact bilaterally, moves all extremities and no sensory deficits noted Sensorium / Orientation: alert Motor Exam: strength 5/5 throughout Psych mental status grossly normal MDM MDM MDM Narrative Medical decision making narrative: Differential diagnosis includes cholecystitis, cholelithiasis, choledocholithiasis, pancreatitis, gastritis, peptic ulcer disease, duodenal ulcer, colitis, urinary tract infection, and ureteral calculus. CBC will be obtained to assess for leukocytosis and anemia. Comprehensive metabolic profile will be obtained to assess for hepatic function, renal function, and electrolyte abnormality. Lipase will be obtained to assess for pancreatitis. Patient had 2 negative troponins drawn last night, therefore, I do not feel this is cardiac in nature. Patient also had EKG done last night which did not show any signs of cardiac ischemia. History & Record Review Discussion w/independent historian: Patient and Significant other Additional record(s) reviewed:: Prior outpatient record, Prior ED visit and Prior labs Lab Data Attestation: I reviewed the patient's lab results. Lab results narrative: CBC was reviewed. There is a leukocytosis of 14.1. The remainder is within normal limits. Comprehensive metabolic profile was reviewed. Total bilirubin was elevated at 1.9. The remainder was essentially within normal limits. Lipase was reviewed and was less than 10. Labs: Laboratory Results - last 24 hr 05/21/24 05/21/24 05/21/24 16:20 17:13 18:20 WBC 14.1 H RBC 4.01 L Hgb 12.6 Hct 36.8 L MCV 91.8 MCH 31.4 MCHC 34.2 RDW Std Deviation 44.4 H RDW Coeff of Omar 13.2 Plt Count 259 MPV 10.1 Immature Gran % (Auto) 0.400 Neut % (Auto) 82.6 H Lymph % (Auto) 11.3 L [place] % (Auto) 5.2 Eos % (Auto) 0.1 Baso % (Auto) 0.4 Absolute Neuts (auto) 11.7 H Absolute Lymphs (auto) 1.60 Nucleated RBC % 0 Sodium 136 Potassium 3.8 Chloride 104 Carbon Dioxide 26.0 Anion Gap 6 BUN 17 Creatinine 0.75 Estim Creat Clear Calc 67.20 Est GFR (MDRD) Af Amer 99 Est GFR (MDRD) Non-Af 82 BUN/Creatinine Ratio 22.7 H Glucose 119 H Calcium 9.7 Total Bilirubin 1.90 H AST 15 ALT 18 Alkaline Phosphatase 101 Total Protein 8.2 Albumin 3.7 Globulin 4.5 H Albumin/Globulin Ratio 0.8 L Lipase < 10 L Urine Color Yellow Urine Clarity Clear Urine pH 6.0 Ur Specific [place] 1.015 Urine Protein 15 H Urine Glucose (UA) Normal Urine Ketones 50 H Urine Occult Blood 250 H Urine Nitrite Negative Urine Bilirubin Negative Urine Urobilinogen Normal Ur Leukocyte Esterase Negative Urine RBC 5-10 SEEN Urine WBC 0 SEEN Ur Squamous Epith Cells 0-5 SEEN Urine Bacteria 0 SEEN Urine Mucus 0 SEEN Radiography Diagnostic Testing: Outpatient gallbladder ultrasound was reviewed and showed evidence of cholelithiasis and acute cholecystitis. This was interpreted by the radiologist and was also independently reviewed by myself. Treatment and Re-Evaluation :: Patient was given IV fluids, morphine, and Zofran. Patient was given a dose of Zosyn. Case was discussed with Dr. Carty from general surgery. He will be in to evaluate the patient for possible cholecystectomy. Dr. Carty was in to evaluate the patient and will admit the patient to his service. Patient understood and was agreeable with the plan. All questions were answered. Discharge Plan Triage Chief Complaint: Abd Pain ED Provider: Rui Tsang Dx/Rx/DC Orders Clinical Impression: Acute cholecystitis, Cholelithiasis, Leukocytosis Prescriptions: No Action omeprazole 20 mg capsule,delayed release(DR/EC) 20 mg PO DAILY thyroid (pork) [[place] Thyroid] 30 mg tablet 30 mg PO BID thyroid (pork) [[place] Thyroid] 15 mg tablet 15 mg PO DAILY Patient Comments: take with 30 mg in morning multivitamin [Daily Multi-Vitamin] Tablet 1 tab PO DAILY Probiotic 3 billion cell capsule 3,000 mmu cells PO QHS Rx Instructions: administer with a meal cetirizine 10 mg tablet 10 mg PO DAILY PRN (Reason: allergy symptoms) Patient Comments: take 1 tablet by mouth once daily cholecalciferol (vitamin D3) [Vitamin D3] 25 mcg (1,000 unit) capsule 50 mcg PO DAILY oxycodone 5 mg tablet 5 mg PO Q6H PRN (Reason: pain) 3 Days Qty: 12 0RF Patient Comments: has not filled it yet--05/21/2024 ondansetron 4 mg tablet,disintegrating 4 mg PO TID PRN (Reason: nausea and vomiting) Qty: 21 0RF Patient Comments: has not filled yet--05/21/2024 Primary Care Provider: Timoteo Lemus Referrals: Timoteo Lemus MD [Primary Care Provider] - Print Language: Lithuanian Disposition Disposition: Acute Care Hospital [facility]
[2024-05-21] MEDS: Piperacil/Tazobactam 4.5 GM in 0.9% Normal Saline (100mL MB+) 100 ML IV (18:08)
[2024-05-21] MEDS: 0.9% Normal Saline (1000mL) 1,000 ML 999 ML IV (18:08)
[2024-05-21] MEDS: Morphine 4 MG/ML Syringe IV (18:10)
[2024-05-21] MEDS: Ondansetron 4 MG/2 ML Vial IV (18:10)
[2024-05-21 18:27] LABS: Bacteria 0 SEEN /hpf (None Seen); Mucous, Urine 0 SEEN /hpf (<or=2+); White Blood Cells 0 SEEN /hpf (0-5)
[2024-05-21 18:41] LABS: Color, Urine Yellow (Yellow); Glucose, Dipstick Normal (Normal); Ketone-Dipstick 50 mg/dl (Negative); Leukocyte Esterase-Dipstick Negative /ul (Negative); Nitrite-Dipstick Negative (Negative); Occult Blood-Urine 250 /ul (Negative); Protein-Dipstick 15 mg/dl (Negative); Specific Gravity, Urine 1.015 (1.002-1.030); Urine Bilirubin Dipstick Negative (Negative); Urine Clarity Clear (Clear); Urine Urobilinogen Normal (Normal)
[2024-05-21 18:45] LABS: Lipase < 10 U/L (13-75)
[2024-05-21 19:00] VITALS: BP 125/56; PULSE 93; RESP 16; O2SAT 95
[2024-05-21 19:01] LABS: Red Blood Cells-Urine 5-10 SEEN /hpf (0-5); Squamous Epithelial Cells - UA 0-5 SEEN /hpf (5-10)
[2024-05-21 19:44] VITALS: BP 121/68; PULSE 92; RESP 16; TEMP 37.5; O2SAT 95
--- NOTE | 2024-05-21 19:55 | HP.PCM_ITS ---
HPI - General General Date of Admission: 05/21/24 Chief Complaint: Severe acute upper abdominal/lower chest pain HPI Narrative SILVA LEBLANC, is a 69 F who presents to [facility] ER for the second time in 24 hours after she presented last evening approximately 11 PM for complaints of severe pain limiting her ability to inspire deeply. She states that this pain developed approximately 930 the same evening following a meal with homemade chicken noodle soup at about 6 PM. ER workup was conducted including biochemical analysis with laboratories as well as a CTA of the chest and abdomen had a concern for possible pulmonary embolus. No embolus was identified but radiology did describe a finding of cholelithiasis. According to emergency medicine record patient had minimal discomfort and she was given a prescription for an outpatient ultrasound. However, according to patient and her she never had remission of her pain until a dose of morphine was administered with this ER visit. She states that she returned home and almost immediately scheduled her ultrasound for this afternoon. During the ultrasound patient found the pain almost unbearable as the biomedical technician was obtaining the images and she was referred back to the emergency department. Once again patient's laboratories were repeated. Patient's above laboratories show evidence of leukocytosis and mild elevation of her bilirubin but normal liver function test. Lipase was also obtained and within normal limits. The right upper quadrant ultrasound performed as an outpatient was read by radiology as concerning for possible acute cholecystitis planing wall thickening and positive sonographic Pro sign. Patient denies any presentations similar to the above. She does acknowledge a chronic cough and wonders whether or not coughing could have caused some sort of muscular strain that led to her presentation. She also suggest that, remotely, she had her airway restricted by thyroid goiter and underwent radioactive iodine ablation and has had no further respiratory difficulty. She is followed tangentially by pulmonary medicine for history of pulmonary nodules. She states these have been stable and are likely related to a remote (45 years ago) history of smoking which only lasted a couple of years. Lastly patient's past surgical history is inclusive of appendectomy and ovarian cystectomy. [facility] Medical History Wears partial dentures Wears glasses Post-menopausal Alcohol use Arthritis Anemia Easy bruising Injury of back Gastric reflux Pulmonary scarring Former smoker Hx of thyroid irradiation History of edema History of stress test Lung nodules Cough Vitamin D deficiency Venous insufficiency Osteopenia Nephrolithiasis Hypothyroidism Migraine Graves disease GERD (gastroesophageal reflux disease) Fibrocystic breast disease Home Medications ?Medication ?Instructions ?Recorded ?Last Taken ?Type omeprazole 20 mg capsule,delayed 20 mg PO DAILY 07/16/22 Unknown History release thyroid (pork) 15 mg tablet 15 mg PO DAILY 07/16/22 Unknown History ([place] Thyroid) thyroid (pork) 30 mg tablet 30 mg PO BID 07/16/22 Unknown History ([place] Thyroid) cetirizine 10 mg tablet 10 mg PO DAILY PRN allergy symptoms 12/16/22 Unknown History lactobacillus combination no.4 3 3,000 mmu cells PO QHS 12/16/22 Unknown History billion cell capsule (Probiotic) multivitamin (Daily Multi-Vitamin 1 tab PO DAILY 12/16/22 Unknown History tablet) cholecalciferol (vitamin D3) 25 50 mcg PO DAILY 05/20/24 Unknown History mcg (1,000 unit) capsule (Vitamin D3) ondansetron 4 mg disintegrating 4 mg PO TID PRN nausea and 05/21/24 Unknown Rx tablet vomiting #21 tabs oxycodone 5 mg tablet 5 mg PO Q6H PRN pain 3 days #12 05/21/24 Unknown Rx tabs Allergy/AdvReac Type Severity Reaction Status Date / Time sodium hypochlorite solution Allergy Severe Anaphylaxis Verified 05/21/24 16:02 levofloxacin (From Levaquin) AdvReac Severe GI UPSET Verified 05/21/24 16:02 Surgical History History of esophagogastroduodenoscopy (EGD) Hx of colonoscopy Hx of oral surgery Hx of breast biopsy Hx of appendectomy Social History Smoking Status: Former smoker how long ago did patient quit smokin YRS alcohol intake: current alcohol intake frequency: holidays/special occasions only Vital Signs Vital Signs Vital Signs: 05/21/24 16:02 05/21/24 19:00 05/21/24 19:44 Temperature 98.2 F 99.5 F H Temperature Source Oral Pulse Rate 129 H 93 92 Respiratory Rate 16 16 16 Blood Pressure 151/74 H 125/56 H 121/68 H Blood Pressure Mean 99 79 85 Pulse Ox 96 95 95 Oxygen Delivery Method Room Air Room Air Weight Weight: 165 lb Body Mass Index (BMI) 27.4 Physical Exam Const alert and well nourished Constitutional Narrative: Appears in mild to moderate distress General Appearance: cooperative Resp Resp Narrative: Mildly tachypneic GI GI Narrative: No clear abdominal scars discerned, no visible herniation, nondistended, soft, tender to palpation in the epigastrium and right upper quadrant. Positive Pro sign. Results Lab / Micro Data 05/21/24 17:13 05/21/24 17:13 Labs: Laboratory Results - last 24 hr 05/21/24 16:20: Lipase < 10 L 05/21/24 17:13: WBC 14.1 H, RBC 4.01 L, Hgb 12.6, Hct 36.8 L, MCV 91.8, MCH 31.4, MCHC 34.2, RDW Std Deviation 44.4 H, RDW Coeff of Omar 13.2, Plt Count 259, MPV 10.1, Immature Gran % (Auto) 0.400, Neut % (Auto) 82.6 H, Lymph % (Auto) 11.3 L, [place] % (Auto) 5.2, Eos % (Auto) 0.1, Baso % (Auto) 0.4, Absolute Neuts (auto) 11.7 H, Absolute Lymphs (auto) 1.60, Nucleated RBC % 0, Sodium 136, Potassium 3.8, Chloride 104, Carbon Dioxide 26.0, Anion Gap 6, BUN 17, Creatinine 0.75, Estim Creat Clear Calc 67.20, Est GFR (MDRD) Af Amer 99, Est GFR (MDRD) Non-Af 82, BUN/Creatinine Ratio 22.7 H, Glucose 119 H, Calcium 9.7, T otal Bilirubin 1.90 H, AST 15, ALT 18, Alkaline Phosphatase 101, Total Protein 8.2, Albumin 3.7, Globulin 4.5 H, Albumin/Globulin Ratio 0.8 L 05/21/24 18:20: Urine Color Yellow, Urine Clarity Clear, Urine pH 6.0, Ur Specific [place] 1.015, Urine Protein 15 H, Urine Glucose (UA) Normal, Urine Ketones 50 H, Urine Occult Blood 250 H, Urine Nitrite Negative, Urine Bilirubin Negative, Urine Urobilinogen Normal, Ur Leukocyte Esterase Negative, Urine RBC 5-10 SEEN, Urine WBC 0 SEEN, Ur Squamous Epith Cells 0-5 SEEN, Urine Bacteria 0 SEEN, Urine Mucus 0 SEEN Assessment & Plan Assessment/Plan (1) Acute cholecystitis: PLAN: Patient is a 69-year-old female, with history of hypothyroidism status post HUYNH for Graves' disease, GERD, nephrolithiasis, and pulmonary nodules who presents with a 24-hour history of severe right upper quadrant abdominal pain that is limited inspiration. Despite history of comorbidities such as GERD and nephrolithiasis, patient quickly distinguishes this most recent episode from these diagnoses?mainly based on the intensity of her symptoms. It is noted that her onset of discomfort was approximately 3 hours postprandial from a meal of chicken noodle soup. She exhibits a mild leukocytosis and mild hyperbilirubinemia. In my independent interpretation of her gallbladder ultrasound it appears that the durability technician measured her wall at 2.5 mm and there does not appear to be a substantial amount of inflammatory change. I certainly confirm the finding of cholelithiasis. I also find her common bile duct to appeared normal in its caliber. Yet on exam she is exquisitely tender with palpation of the right upper quadrant and exhibiting a positive Pro sign. Thus I suspect she has an early case of acute cholecystitis and this is why her sonographic manifestations are not particularly remarkable. I have shared with her, frankly, that her presentation is slightly atypical given her descriptions of shortness of breath but I am led to believe this is in part due to abdominal wall and potential diaphragmatic irritation from the inflammatory changes or gallbladder. With this suspicion I have recommended proceeding for laparoscopic cholecystectomy with intraoperative cholangiogram, but cautioned her that there is a chance this may not fully ameliorate her entire presenting picture. The procedure was described in detail as well as a typical postoperative course. Patient and her expressed appreciation for this description. Will plan to reassess in AM. For now patient may have clear liquids until midnight and then is to become n.p.o. with IV fluid support. Will begin IV antibiotics now and reassess comprehensive metabolic panel in the a.m. Awaiting a update on when we will be able to proceed with surgery tomorrow. Norman Carty MD General Surgery Endocrine Surgery Pager: [facility] [address] [place] [address], [facility], [address] [place] [id number] Office: [phone] Charges/Coding Visit Charges Inpatient E&M: 16303 Init Hosp L2
[2024-05-21] MEDS: Pantoprazole Sodium 40 MG in 0.9% Normal Saline (100mL MB+) 100 ML 330 MG IV (20:13)
[2024-05-21] MEDS: 0.9% Normal Saline (1000mL) 1,000 ML 125 ML IV (20:40)
[2024-05-21 21:00] VITALS: BP 122/64; PULSE 93; RESP 16; O2SAT 97
[2024-05-21 22:02] VITALS: BMI 27.2
[2024-05-21 22:06] VITALS: BMI 27.2
[2024-05-21 22:28] VITALS: BP 112/68; PULSE 96; RESP 16; TEMP 36.7; O2SAT 96
[2024-05-21] MEDS: HYDROmorphone 0.5 MG/0.5 ML SYRINGE IV (22:32)
[2024-05-21] MEDS: Piperacil/Tazobactam 3.375 GM in 0.9% Normal Saline (50mL MB+) 50 ML IV (22:34)
[2024-05-22] VITALS (15 sets, daily range): BP systolic 90–125; BP diastolic 40–74; PULSE 75–96; RESP 14–18; TEMP 36.3–37.1; O2SAT 92–99; BMI 27.1
--- NOTE | 2024-05-22 01:58 | EKG12_ITS ---
Test Reason : AM EKG Blood Pressure : */* mmHG Vent. Rate : 87 BPM Atrial Rate : 87 BPM P-R Int : 190 ms QRS Dur : 74 ms QT Int : 356 ms P-R-T Axes : 47 -1 31 degrees QTcB Int : 428 ms Normal sinus rhythm Septal infarct , age undetermined Cannot rule out Inferior infarct , age undetermined Abnormal ECG When compared with ECG of 20-May-2024 23:23, MANUAL COMPARISON REQUIRED DATA IS UNCONFIRMED Confirmed by KEN MOLINA, RIKA ([id number]), editorial director ALIDA HYATT ([id number]) on 05/22/2024 8:22:35 AM Referred By: DAWIT Confirmed By: RIKA ROGERS MD
[2024-05-22] MEDS: Piperacil/Tazobactam 3.375 GM in 0.9% Normal Saline (50mL MB+) 50 ML IV ×3 (06:29→20:21)
[2024-05-22 07:45] LABS: Absolute Lymphocyte Count 2.14 X10^3/uL (0.83-4.51); Absolute Neutrophil Count 6.7 X10^3/uL (2.0-7.7); Basophil# 0.05 X10^3/uL; Basophil% 0.5 % (0-1); Eosinophil# 0.13 X10^3/uL; Eosinophils% 1.3 % (0-5); Hemoglobin 10.6 g/dL (12.0-15.0); Lymphocyte # 2.14 X10^3/ul (0.83-4.51); Lymphocyte % 21.5 % (19-41); Mean Corp Hgb Conc 32.1 g/dL (32-36); Mean Corpuscular Hgb 30.1 pg (27.0-32.0); Mean Corpuscular Volume 93.8 fL (81-99); Mean Platelet Vol. 10.2 fl (6.2-12.0); Monocyte# 0.87 X10^3/uL; Monocyte% 8.7 % (0-10); NRBC Flagged by Analyzer 0 % (0-5); Neutrophil # 6.73 X10^3/uL (2.7-7.7); Neutrophil % 67.7 % (47-70); Platelet Count 234 K/mm3 (150-450); RBC Distribution Width CV 13.3 % (11.6-14.6); RBC Distribution Width SD 45.6 fl (35.1-43.9); Red Blood Count 3.52 M/mm3 (4.2-5.4)
[2024-05-22 08:14] LABS: ALB/GLOB Ratio 0.8 RATIO (0.9-2.4); AST(SGOT) 15 U/L (15-37); Alanine Aminotransfer ALT/SGPT < 6 U/L (13-56); Albumin, Serum 2.9 g/dL (3.2-5.0); Alkaline Phosphatase 79 U/L (45-117); Anion Gap 5 (5-15); BUN 18 mg/dL (7-18); BUN/Creat Ratio 27.1 RATIO (10-20); Chloride 111 mmol/L (98-107); Creatinine, Serum 0.66 mg/dL (0.55-1.02); EST Glomerular Filtration Rate 94 mL/min (>60); Est Glom Filt Rate - Afr Amer 114 mL/min (>60); Estimated Creatinine Clearance 66.99 ml/min; Globulin 3.7 g/dL (2.2-4.2); Glucose 92 mg/dL (74-106); Potassium 3.5 mmol/L (3.5-5.1); Protein, Total 6.6 g/dL (6.4-8.2); Sodium Level 140 mmol/L (136-145)
--- NOTE | 2024-05-22 08:55 | PCM.PN.SRG ---
Subjective Subjective Patient is evaluated resting comfortably in bed. She notes abdominal pain has improved. She denies any nausea, vomiting. She continues to note abdominal pain in the right upper quadrant. Objective Data Objective Data Vital Signs: Vital Signs Temp Pulse Resp BP Pulse Ox O2 Del Method 98.3 F 96 16 112/62 92 Room Air 05/22/24 08:43 05/22/24 08:43 05/22/24 08:43 05/22/24 08:43 05/22/24 08:43 05/22/24 08:43 Oxygen Delivery Method Room Air Weight: 163 lb 8 oz Body Mass Index (BMI) 27.1 Intake & Output: Intake and Output for Last 24 Hours 05/20/24 05/21/24 05/22/24 23:59 23:59 23:59 Intake Total 1210 / 1210 50 / 50 Balance 1210 / 1210 50 / 50 Lab / Micro Data 05/22/24 07:21 05/22/24 07:21 Labs: Laboratory Results - last 24 hr 05/21/24 16:20: Lipase < 10 L 05/21/24 17:13: WBC 14.1 H, RBC 4.01 L, Hgb 12.6, Hct 36.8 L, MCV 91.8, MCH 31.4, MCHC 34.2, RDW Std Deviation 44.4 H, RDW Coeff of Omar 13.2, Plt Count 259, MPV 10.1, Immature Gran % (Auto) 0.400, Neut % (Auto) 82.6 H, Lymph % (Auto) 11.3 L, [place] % (Auto) 5.2, Eos % (Auto) 0.1, Baso % (Auto) 0.4, Absolute Neuts (auto) 11.7 H, Absolute Lymphs (auto) 1.60, Nucleated RBC % 0, Sodium 136, Potassium 3.8, Chloride 104, Carbon Dioxide 26.0, Anion Gap 6, BUN 17, Creatinine 0.75, Estim Creat Clear Calc 67.20, Est GFR (MDRD) Af Amer 99, Est GFR (MDRD) Non-Af 82, BUN/Creatinine Ratio 22.7 H, Glucose 119 H, Calcium 9.7, Total Bilirubin 1.90 H, AST 15, ALT 18, Alkaline Phosphatase 101, Total Protein 8.2, Albumin 3.7, Globulin 4.5 H, Albumin/Globulin Ratio 0.8 L 05/21/24 18:20: Urine Color Yellow, Urine Clarity Clear, Urine pH 6.0, Ur Specific [place] 1.015, Urine Protein 15 H, Urine Glucose (UA) Normal, Urine Ketones 50 H, Urine Occult Blood 250 H, Urine Nitrite Negative, Urine Bilirubin Negative, Urine Urobilinogen Normal, Ur Leukocyte Esterase Negative, Urine RBC 5-10 SEEN, Urine WBC 0 SEEN, Ur Squamous Epith Cells 0-5 SEEN, Urine Bacteria 0 SEEN, Urine Mucus 0 SEEN 05/22/24 07:21: WBC 10.0, RBC 3.52 L, Hgb 10.6 L, Hct 33.0 L, MCV 93.8, MCH 30.1, MCHC 32.1 D, RDW Std Deviation 45.6 H, RDW Coeff of Omar 13.3, Plt Count 234, MPV 10.2, Immature Gran % (Auto) 0.300, Neut % (Auto) 67.7, Lymph % (Auto) 21.5, [place] % (Auto) 8.7, Eos % (Auto) 1.3, Baso % (Auto) 0.5, Absolute Neuts (auto) 6.7, Absolute Lymphs (auto) 2.14, Nucleated RBC % 0, Sodium 140, Potassium 3.5, Chloride 111 H, Carbon Dioxide 24.0, Anion Gap 5, BUN 18, Creatinine 0.66, Estim Creat Clear Calc 66.99, Est GFR (MDRD) Af Amer 114, Est GFR (MDRD) Non-Af 94, BUN/Creatinine Ratio 27.1 H, Glucose 92, Calcium 9.0, Total Bilirubin 2.00 H, AST 15, ALT < 6 L, Alkaline Phosphatase 79, Total Protein 6.6, Albumin 2.9 L, Globulin 3.7, Albumin/Globulin Ratio 0.8 L, TSH 1.690 Physical Exam GI GI Narrative: Abdomen- soft, tenderness in the right upper quadrant with palpation. Assessment & Plan Assessment/Plan (1) Acute cholecystitis: (2) Leukocytosis: PLAN: Plan I am following this patient in conjunction with Dr. Carty. He has independently evaluated this patient. Labs reviewed. WBC has returned to normal. Total Bili increased to 2.[address] Carty to perform a laparoscopic cholecystectomy with IOC this morning We will continue to monitor this patient Charges/Coding Visit Charges Inpatient E&M: 30501 Subs Hosp L1 (no charge)
--- NOTE | 2024-05-22 09:11 | PCM.PRE.AN2 ---
ASA Classification* ASA Classification ASA Classification: 2 Assessment & Plan Anesthesia* Anesthesia Assessment Anesthesia Assessment: Discussed sedation and/or anesthesia options, risks, benefits, and alternatives with patient/parents/legal guardian/POA. Questions invited. The patient/parents/legal guardian/POA seems to understand and agrees to proceed with anesthesia plan. Reviewed the physical assessment, medical history, allergy history and patient home medications list prior to surgery/procedure/anesthetic and documented any changes. Performed airway and anesthesia risk assessments. Anesthesia Type Anesthesia Type: General Anesthesia Focused Assessment* Temperature: 98.3 F Pulse Rate: 96 Blood Pressure: 112/62 Respiratory Rate: 16 Pulse Ox: 92 Airway Assessment Mouth opens: >3 cm Mallampati Score: II Focused Labs Anesthesia Preop lab: CBC WBC 10.0 K/mm3 (4.4-11.0) 05/22/24 07:21 RBC 3.52 M/mm3 (4.2-5.4) L 05/22/24 07:21 Hgb 10.6 g/dL (12.0-15.0) L 05/22/24 07:21 Hct 33.0 % (37-47) L 05/22/24 07:21 Plt Count 234 K/mm3 (150-450) 05/22/24 07:21 CHEMISTRY Potassium 3.5 mmol/L (3.5-5.1) 05/22/24 07:21 Sodium 140 mmol/L (136-145) 05/22/24 07:21 Magnesium 1.9 mg/dL (1.6-2.6) 05/20/24 23:27 BUN 18 mg/dL (7-18) 05/22/24 07:21 Creatinine 0.66 mg/dL (0.55-1.02) 05/22/24 07:21 Glucose 92 mg/dL (74-106) 05/22/24 07:21 TSH 1.690 uIU/mL (0.358-3.740) 05/22/24 07:21 COAG PT 13.0 SECONDS (11.7-14.9) 05/20/24 23:27 Pre-Assessment Diagnosis/Proposed Procedure Planned Operative Procedure(s): Laproscopic Ynes Anesthesia History Anesthesia History - vessel manager: Anesthesia History - vessel manager Hx Hospitalization No 07/06/23 12:20 Any Problems With Anesthesia No 05/21/24 22:06 Cholinesterase deficiency No 12/16/22 12:20 You/Your Family Experience Yes: MOM GOT NAUSEA 05/21/24 22:06 fever (hyperthermia) with Relationship Recent Exposure to Contagious No 05/21/24 22:06 Disease Does patient have nerve No 05/21/24 22:06 stimulator Patient instructed to have device shut off --Does patient have Pacemaker No 05/22/24 08:43 or ICD? When Was Last Pacemaker Check QUESTION #4 FULL TEXT: You/Your Family Experience fever (hyperthermia) with Anesthesia Last Oral Intake Last Oral intake: Last Oral Intake NPO since 00:00 05/22/24 08:43 Meds taken in AM with sips of No 05/22/24 08:43 water? Meds patient instructed to take am of surgery PONV PONV - vessel manager: PONV - vessel manager Female HX of Motion Sickness HX of N/V After Surgery Non-Smoker Duration of Surgery greater than 60 minutes Number of Risk Factors PONV Score Height & Weight Height & Weight: Anesthesia: Height & Weight Height 5 ft 5 in 05/22/24 08:43 Weight: 74.162 kg 05/22/24 08:43 Body Mass Index (BMI) 27.1 05/22/24 08:43 Respiratory Assessment Respiratory Assessment - vessel manager: Respiratory Tract Infection Hx - vessel manager Hx Respiratory Tract Infection No 05/21/24 22:06 STOP Sleep Apnea STOP Sleep Apnea - vessel manager: STOP Sleep Apnea - vessel manager Hx Hypertension No 05/21/24 22:02 Hx Sleep Apnea No 05/21/24 22:02 CPAP BIPAP Do you snore loudly (louder No 05/21/24 22:02 than talking or can be heard Do you often feel tired/ No 05/21/24 22:02 fatigued/ sleepy during daytime? Has anyone observed you stop No 05/21/24 22:02 breathing during sleep? STOP Results Negative 05/21/24 22:02 QUESTION #5 FULL TEXT : Do you snore loudly (louder than talking or can be heard through closed doors)? Tobacco Use History Tobacco Use History - vessel manager: Tobacco Use History - vessel manager Tobacco Use Smoking Status Former smoker 05/21/24 22:02 Hx Tobacco Use No 05/21/24 22:02 Years Smoking Packs Smoked per Day Smoking Cessation Date was No - quit smoking greater 05/21/24 22:02 within the last 15 years than 15 years ago Hx Smoking Cessation Date Hx Smoking Cessation No 05/21/24 22:02 Counseling Hematologic Medial History Hematologic Hx - vessel manager: Hematologic Medical Hx - personal counselor Hx of Blood Transfusion No 05/21/24 22:02 Hx of Transfusion in last 3 No 05/21/24 22:02 Months Date of Last Transfusion (if within last 3 months) Ever experience any problems No 05/21/24 22:02 with transfusion(s)? Specify any problems Hx of Preganancy in last 3 No 05/21/24 22:02 Months Nurse Filling Out Transfusion TMELLOR 05/21/24 22:02 & Questions: Date: 05/21/24 05/21/24 22:02 Time: 22:03 05/21/24 22:02 Patient unable to answer at this time (ie. confused, unrespo /Reproduction History /Reproductive History - vessel manager: /Reproductive Hx- vessel manager Hx Now No 05/21/24 22:06 Gestational Age (in weeks): EDC: Hx Hx Para Hx Section SAB No 12/16/22 12:20 Active Medications Active Medications: Current Medications Generic Name Dose Route Start Last Admin Trade Name Freq PRN Reason Stop Dose Admin Acetaminophen 500 mg 05/21/24 19:51 Acetaminophen 500 Mg Tablet PO Q6H PRN PRN Pain Score 1-10 Hydromorphone HCl 0.5 mg 05/21/24 19:51 05/21/24 22:32 Hydromorphone 0.5 Mg/0.5 Ml Syringe IV 0.5 mg Q4H PRN PRN Administration Pain Score 6-10 Sodium Chloride 1,000 mls @ 125 mls/hr 05/21/24 19:55 05/21/24 20:40 IV 05/22/24 11:54 125 mls/hr .Q8H JORGE Administration Protocol Piperacillin Sod/Tazobactam 50 mls @ 12.5 mls/hr 05/21/24 22:00 05/22/24 06:29 Sod 3.375 gm/ Sodium Chloride IV 12.5 mls/hr Q8 JORGE Administration Pantoprazole Sodium 40 mg/ 110 mls @ 330 mls/hr 05/21/24 19:55 05/21/24 20:40 Sodium Chloride IV Infused Q24 JORGE Infusion Sodium Chloride 500 mls @ 15 mls/hr 05/21/24 22:00 IV .[id number] PRN Saline Flush Ondansetron HCl 4 mg 05/21/24 19:51 Ondansetron 4 Mg/2 Ml Vial IV Q6H PRN PRN NAUSEA/VOMITING Sodium Chloride 10 - 40 ml 05/21/24 22:00 0.9% Saline Lock 10 Ml Syringe IV UD PRN SALINE FLUSH PFSH Medical History Wears partial dentures Wears glasses Post-menopausal Alcohol use Arthritis Anemia Easy bruising Injury of back Gastric reflux Pulmonary scarring Former smoker Hx of thyroid irradiation History of edema History of stress test Lung nodules Cough Vitamin D deficiency Venous insufficiency Osteopenia Nephrolithiasis Hypothyroidism Migraine Graves disease GERD (gastroesophageal reflux disease) Fibrocystic breast disease Home Medications ?Medication ?Instructions ?Recorded ?Last Taken ?Type omeprazole 20 mg capsule,delayed 20 mg PO DAILY 07/16/22 Unknown History release thyroid (pork) 15 mg tablet 15 mg PO DAILY 07/16/22 Unknown History ([place] Thyroid) thyroid (pork) 30 mg tablet 30 mg PO BID 07/16/22 Unknown History ([place] Thyroid) cetirizine 10 mg tablet 10 mg PO DAILY PRN allergy symptoms 12/16/22 Unknown History lactobacillus combination no.4 3 3,000 mmu cells PO QHS 12/16/22 Unknown History billion cell capsule (Probiotic) multivitamin (Daily Multi-Vitamin 1 tab PO DAILY 12/16/22 Unknown History tablet) cholecalciferol (vitamin D3) 25 50 mcg PO DAILY 05/20/24 Unknown History mcg (1,000 unit) capsule (Vitamin D3) ondansetron 4 mg disintegrating 4 mg PO TID PRN nausea and 05/21/24 Unknown Rx tablet vomiting #21 tabs oxycodone 5 mg tablet 5 mg PO Q6H PRN pain 3 days #12 05/21/24 Unknown Rx tabs Allergy/AdvReac Type Severity Reaction Status Date / Time sodium hypochlorite solution Allergy Severe Anaphylaxis Verified 05/21/24 16:02 levofloxacin (From Levaquin) AdvReac Severe GI UPSET Verified 05/21/24 16:02 Surgical History History of esophagogastroduodenoscopy (EGD) Hx of colonoscopy Hx of oral surgery Hx of breast biopsy Hx of appendectomy Social History Smoking Status: Former smoker how long ago did patient quit smokin YRS alcohol intake: current alcohol intake frequency: holidays/special occasions only Review of Systems (Anesthesia) ROS Narrative System reviewed and no additional complaints, except as documented.
--- NOTE | 2024-05-22 09:45 | GALL_PTH ---
PATIENT: SILVA LEBLANC LOC: MS3 U#:[id number] AGE/SX: 69/F ROOM: ND321 RE05/21/[address]: Dr. Norman Carty MD : [id number] BED: 1 DIS: 05/23/2024 SPEC #: [id number] RECD: 05/22/24 13:00 STATUS: FREEDOM SIMON #: [id number] RU: 05/22/24 09:[address]: Norman Carty DEPT: SURGICAL PATHOLOGY RECD BY: Denzel Johnson ENTERED: 05/22/24 13:43 SP TYPE: SUSANA ROSALES DR: Dr. Timoteo Lemus MD Tissues: Gallbladder, NOS Procedures: Surgery Specimen Level III HEADER OPERATION: Laparoscopic cholecystectomy with IOC PRE-OP DIAGNOSIS: Acute cholecystitis TISSUE SUBMITTED: Gallbladder MICROSCOPIC DIAGNOSIS Gallbladder, cholecystectomy: Acute and chronic cholecystitis and cholelithiasis. ISIS. 05/23/2024 MICROSCOPIC DESCRIPTION Slides are reviewed. GROSS DESCRIPTION Received is one container labeled with the patient's name and designated gallbladder. The specimen consists of a gallbladder measuring 7.0 x 3.6 x 2.0 cm. The external surface is smooth and glistening. Focally, it is granular, hemorrhagic and contains cautery artifact. The lumen of the gallbladder contains yellow-green mucoid bile and multiple mulberry shaped yellow calculi each measuring approximately 0.7cm in diameter. The mucosa is bile-stained and without any mass lesions. The gallbladder wall averages 0.2 cm in thickness and is free of mass lesions. Supervising Floorperson sections of the gallbladder and the cystic duct at margin of resection are submitted in one cassette. / AM: 05/22/2024 TC:3 CPT: 72700
--- NOTE | 2024-05-22 11:00 | RAD_ITS ---
EXAM: [place] CHOLANGIOGRAPHY AND/OR PANCREATOGRAPHY CLINICAL INDICATION: TECHNIQUE: Cine fluoroscopic images of the upper abdomen obtained at the time of laparoscopic cholecystectomy with contrast injected via the cystic duct. COMPARISON: No relevant prior studies available. FINDINGS: Normal-appearing biliary tree. No filling defects to indicate retained stone. There is visualization of the duodenum. See operative note for additional information. RAD/Cholangiogram/ O R,Initial IMPRESSION: Normal operative cholangiogram. Electronically Signed: Wilfrido Olson MD at 12:28 EST ,
--- NOTE | 2024-05-22 12:01 | PCM.OPRPT ---
Procedures Digestive 40xxx-49xxx: 02616 Laparo cholecystectomy/graph Operative Report (Standard) Operative Information Date of Procedure: 05/22/24 Pre-Operative Diagnosis: Acute cholecystitis Post-Operative Diagnosis: Same Surgery/Procedure Performed: Laparoscopic cholecystectomy with intraoperative cholangiogram residential leasing agent: Yes Senior Telecommunications Technician: Mykel Dennison Tasks completed by loan officer assistant: Opening & closing, Trocar and Retracting Type of Anesthesia: General/Supplemental RN Documented Start/Stop Times: Operation Date: 05/22/24 09:45 Case Time Into Pre-Op 05/22/24 09:05 Out of Pre-Op 05/22/24 09:52 Anesthesia Start 05/22/24 10:00 Into Room 05/22/24 10:00 Procedure Start 05/22/24 10:49 Procedure End 05/22/24 12:06 Anesthesia End 05/22/24 12:18 Out of Room 05/22/24 12:18 Into Recovery 05/22/24 12:21 Out of Recovery 05/22/24 13:36 Procedure Start Time: 10:49 Procedure Stop Time: 12:06 Select all DRAINS/GRAFTS/IMPLANTS that apply: None Estimated Blood Loss: 10 Specimen collected: Yes Description of specimen(s) removed: Gallbladder Description of surgery: After proper identification in the preoperative holding area the patient was brought to the operating room where she was positioned supine on the operating room table. Preoperatively SCDs were connected and antibiotics were administered (patient was given an interval dose of 2 g Ancef given duration since scheduled Zosyn). General anesthesia was then induced. Peripheral IV required replacement as it was nonfunctional by the time patient arrived to the room and several attempts were made on bilateral upper extremities. After establishing appropriate IV access, patient's abdomen was prepped and draped in usual sterile fashion. A formal timeout was conducted to confirm both patient and the procedure. Procedure was begun with a supraumbilical incision which was extended deeply down to the level of the fascia. The fascia was elevated and incised, as well as the peritoneum. A finger sweep was performed to ensure there were no underlying adhesions and a 12 mm balloon trocar was inserted. Pneumoperitoneum was established at 15 mmHg. Three additional trocars (all 5 mm) were placed in the epigastrium and in the right upper quadrant. Inspection of the peritoneum revealed no inadvertent injury to the viscera below. The gallbladder was visualized with covering by the omentum and evidence of moderately acute inflammation. These adhesions were taken down with the use of blunt dissection and and selective electrocautery. The gallbladder fundus was then grasped and elevated cephalad. I attempted the use selective electrocautery over the body of the gallbladder to ensure the peritoneal covering but was immediately met with return of bile indicating a transmural perforation of the gallbladder wall this was occluded with the application of a locking grasper that serves a dual purpose for going retraction. Then, using careful dissection the peritoneum was opened and the structures of the hepatocystic triangle were delineated. Once the critical view of safety was obtained, the cystic duct was singly clipped and partially divided with a ductotomy. The proximal duct was milked of debris until there was backflow of bile. A cholangiocatheter was fed into the proximal segment of the cystic duct and clipped into place. Under fluoroscopy a cholangiogram was then obtained showing a standard length cystic duct flowing into a common bile duct with unobstructed antegrade flow of contrast into the duodenum. There was also retrograde flow through the common hepatic duct into the right and left hepatic ducts. Satisfied with this result, the cholangiocatheter was withdrawn and the proximal cystic duct was sealed with clips and the cystic duct was completely transected. The same process was used for the cystic artery and its apparent bifurcation towards the gallbladder fundus (after confirming through more distal dissection that there were no other structures that it could possibly be entering). The gallbladder was then removed from the gallbladder fossa with the use of electrocautery. Selective electrocautery was used to obtain hemostasis in the gallbladder fossa. The gallbladder was placed in an Endo Catch bag and removed from the peritoneum. Morison's pouch was irrigated and the effluent was suctioned free of the peritoneum. Hemostasis was again confirmed. Pneumoperitoneum was evacuated and the fascia of the 12 mm port sites was closed with #1Vicryl in a [id number] fashion. A total of 30 mL of anesthetic was injected at the port sites for postoperative pain control. The skin of each port site was then closed in subcuticular fashion using 4-0 Monocryl. Steri-Strips and bandages were applied as dressings. Patient tolerated the procedure well without any apparent complications. On emergence from their anesthetic the patient was taken to PACU for ongoing recovery. Surgical Findings: ? Moderately severe acute inflammation ? Cholangiogram showing antegrade flow without filling defect and retrograde flow through intrahepatic biliary tree Complications Complications: No Admit VTE Documentation VTE Mechan Device Prophylaxis: SCD's
[2024-05-22] MEDS: Bupiv/Epi 0.25% 30 ML Vial (12:03)
--- NOTE | 2024-05-22 12:22 | PCM.POST.ANE ---
Anesthesia: Postop Eval I Current Vital Signs Temperature: 98.7 F Pulse Rate: 91 Blood Pressure: 95/40 Respiratory Rate: 18 Pulse Ox: 93 Assessment Airway patent: Yes Spontaneous unlabored respirations: Yes nausea: No Vomiting: No Anesthesia Complication: No Fluid Hydration Crystalloid volume administer (ml): 1,500 Total IV fluid infused: 1,500 Progress Note Anesthesia document: Postop Eval 1 completed: Yes
[2024-05-22] MEDS: Pantoprazole Sodium 40 MG in 0.9% Normal Saline (100mL MB+) 100 ML 330 MG IV (12:30)
[2024-05-22] MEDS: Acetaminophen 500 MG Tablet PO ×2 (14:16→20:18)
[2024-05-22] MEDS: Ondansetron 4 MG/2 ML Vial IV (14:17)
[2024-05-22] MEDS: oxyCODONE 5 MG Tablet PO ×2 (14:17→20:18)
[2024-05-22] MEDS: 0.9% Saline Lock 10 ML Syringe IV (14:19)
--- NOTE | 2024-05-22 15:28 | CASEMGMT ---
RN CM TIPPLE REPAIRER ANA LUISA?to room to meet with patient for initial transition planning/care coordination assessment. RN CM?introduced self and role at [facility]. Pt voices understanding and consents to assessment?at this time. Pt resting in bed in no distress at this time. Pt is A/O at this time and answers all questions appropriately. Care providers, pharmacy, and demographics verified/updated at this time. Strata:?1 PCP: Dr Lemus Specialists: Dr Renae Corbett-[facility] pulmonology, Dr Oneill-GI, Dr Torres-endocrinology @ [facility]. Preferred Pharmacy: [facility] [place]: [place] Prescription Benefit: Yes Living Will/HPOA: Has done both LW and HCPOA, who is her . LNOK: , Amari. Daughter, Alida Living Arrangements: Lives w/ in one-story home w/basement and 3 steps to enter. Independent. able to assist, if needed. Transportation:?Pt and both drive. DME: Denies using any DME HHC/SNF: No hx of either. Pt wishes to return home and states has no concerns with going home at time of discharge. CM?to follow for any discharge planning/needs. Pt and family voices no concerns/needs at this time. Advised them to ask for CM?if any questions/concerns/needs arise. They voice understanding. PLAN: Home Amanda GALLEGOS RN, CM
--- NOTE | 2024-05-22 15:29 | CHAPLAIN ---
Type of Pastoral Visit ___ Initial Visit ___ Follow-up Visit ___ On-call Visit ___ General Patient Visit ___ Spiritual Assessment ___ Family Conference ___ Bereavement ___ Rapid Response ___ Code Blue ___ Other (describe below) Pastoral Care Referral From ___ Patient ___ Family ___ Nurse ___ Physician ___ Records Management Technician ___ Flag Football Coach ___ Other (describe below) Sacrament/Intervention ___ Active listening ___ Anointing ___ Adventist ___ Bereavement ___ Communion ___ Patricia exploration ___ ___ Life review ___ Prayer ___ Reconciliation ___ Sacrament of Sick ___ Supportive presence ___ Wedding ___ Other (describe below) Pastoral Comments patient and bed were out of the room at time of attempted visit; calling card left
--- NOTE | 2024-05-22 16:32 | POSTOPAN2_ITS ---
Anesthesia Postop Eval I Sum Postop Eval Completion status Anesthesia document: Postop Eval 1 completed: Yes Anesthesia Postop Eval I Summary Anesthesia Postop Eval I Summary: Anesthesia Postop Eval I: Assessment Summary Airway patent Yes 05/22/24 12:22 WHISTLE [email or web address] Spontaneous unlabored Yes 05/22/24 12:22 WHISTLE PUNK.CSIR respirations Mental status nausea No 05/22/24 12:22 WHISTLE PUNK.CSIR Vomiting No 05/22/24 12:22 WHISTLE PUNK.CSIR Anesthesia Postop Eval I: Fluid Summary Crystalloid volume administer 1,500 05/22/24 12:22 WHISTLE PUNK.CSIR (ml) Colloids volume administered ( ml) Blood Product volume administered (ml) Total IV fluid infused 1,500 05/22/24 12:22 WHISTLE PUNK.CSIR Anesthesia Postop Eval I: Summary Notes Anesthesia Complication No 05/22/24 12:22 WHISTLE PUNK.CSIR Anesthesia Complication Comment: Post-operative progress note Anesthesia: Postop Eval II Evaluation Mental status: Awake and Calm Pain Level: 1 nausea: No Vomiting: No Complications Anesthesia Complication: No
--- NOTE | 2024-05-22 16:32 | PCM.POSTANE2 ---
Anesthesia Postop Eval I Sum Postop Eval Completion status Anesthesia document: Postop Eval 1 completed: Yes Anesthesia Postop Eval I Summary Anesthesia Postop Eval I Summary: Anesthesia Postop Eval I: Assessment Summary Airway patent Yes 05/22/24 12:22 COAL FEEDER OPERATOR.[email or web address] Spontaneous unlabored Yes 05/22/24 12:22 COAL FEEDER OPERATOR.CSIR respirations Mental status nausea No 05/22/24 12:22 COAL FEEDER OPERATOR.CSIR Vomiting No 05/22/24 12:22 COAL FEEDER OPERATOR.CSIR Anesthesia Postop Eval I: Fluid Summary Crystalloid volume administer 1,500 05/22/24 12:22 COAL FEEDER OPERATOR.CSIR (ml) Colloids volume administered ( ml) Blood Product volume administered (ml) Total IV fluid infused 1,500 05/22/24 12:22 COAL FEEDER OPERATOR.CSIR Anesthesia Postop Eval I: Summary Notes Anesthesia Complication No 05/22/24 12:22 COAL FEEDER OPERATOR.CSIR Anesthesia Complication Comment: Post-operative progress note Anesthesia: Postop Eval II Evaluation Mental status: Awake and Calm Pain Level: 1 nausea: No Vomiting: No Complications Anesthesia Complication: No
[2024-05-23 02:15] VITALS: BP 109/54; PULSE 83; RESP 16; TEMP 36.4; O2SAT 97
[2024-05-23] MEDS: oxyCODONE 5 MG Tablet PO (02:17)
[2024-05-23] MEDS: Acetaminophen 500 MG Tablet PO (02:17)
[2024-05-23 06:26] VITALS: BP 109/73; PULSE 84; RESP 16; TEMP 36.4; O2SAT 96
[2024-05-23] MEDS: Piperacil/Tazobactam 3.375 GM in 0.9% Normal Saline (50mL MB+) 50 ML IV (06:30)
[2024-05-23 07:34] LABS: Absolute Lymphocyte Count 3.15 X10^3/uL (0.83-4.51); Basophil# 0.04 X10^3/uL; Basophil% 0.3 % (0-1); Eosinophil# 0.08 X10^3/uL; Eosinophils% 0.6 % (0-5); Hematocrit 33.6 % (37-47); Hemoglobin 10.9 g/dL (12.0-15.0); Lymphocyte # 3.15 X10^3/ul (0.83-4.51); Lymphocyte % 23.7 % (19-41); Mean Corp Hgb Conc 32.4 g/dL (32-36); Mean Corpuscular Hgb 30.4 pg (27.0-32.0); Mean Corpuscular Volume 93.9 fL (81-99); Mean Platelet Vol. 10.1 fl (6.2-12.0); Monocyte# 0.99 X10^3/uL; Monocyte% 7.4 % (0-10); NRBC Flagged by Analyzer 0 % (0-5); Neutrophil # 8.97 X10^3/uL (2.7-7.7); Neutrophil % 67.5 % (47-70); Platelet Count 248 K/mm3 (150-450); RBC Distribution Width CV 13.2 % (11.6-14.6); RBC Distribution Width SD 45.4 fl (35.1-43.9); Red Blood Count 3.58 M/mm3 (4.2-5.4); White Blood Count 13.3 K/mm3 (4.4-11.0)
[2024-05-23 08:19] LABS: ALB/GLOB Ratio 0.8 RATIO (0.9-2.4); AST(SGOT) 26 U/L (15-37); Alanine Aminotransfer ALT/SGPT 24 U/L (13-56); Alkaline Phosphatase 77 U/L (45-117); Anion Gap 4 (5-15); BUN 14 mg/dL (7-18); BUN/Creat Ratio 17.7 RATIO (10-20); Calcium,Total 9.2 mg/dL (8.5-10.1); Chloride 108 mmol/L (98-107); Creatinine, Serum 0.79 mg/dL (0.55-1.02); EST Glomerular Filtration Rate 76 mL/min (>60); Est Glom Filt Rate - Afr Amer 92 mL/min (>60); Estimated Creatinine Clearance 66.93 ml/min; Globulin 3.9 g/dL (2.2-4.2); Glucose 91 mg/dL (74-106); Potassium 3.3 mmol/L (3.5-5.1); Protein, Total 6.9 g/dL (6.4-8.2); Sodium Level 140 mmol/L (136-145)
--- NOTE | 2024-05-23 08:19 | PN.SURG_ITS ---
Subjective Subjective Patient evaluated resting comfortably in bed. She notes intermittent RUQ spams, which last seconds and then resolve. She denies nausea, vomiting. She voces readiness to be discharged to home. Objective Data Objective Data Vital Signs: Vital Signs Temp Pulse Resp BP Pulse Ox O2 Del Method O2 Flow Rate 97.6 F L 84 16 109/73 96 Room Air 2 05/23/24 06:26 05/23/24 06:26 05/23/24 06:26 05/23/24 06:26 05/23/24 06:26 05/23/24 06:26 05/22/24 14:00 Oxygen Flow Rate (L/min) 2 Oxygen Delivery Method Room Air Weight: 163 lb 9.328 oz Body Mass Index (BMI) 27.1 Intake & Output: Intake and Output for Last 24 Hours 05/21/24 05/22/24 05/23/24 23:59 23:59 23:59 Intake Total 1210 / 1210 1510 / 1910 950 / 950 Balance 1210 / 1210 1510 / 1910 950 / 950 Lab / Micro Data 05/23/24 07:21 05/23/24 07:21 Labs: Laboratory Results - last 24 hr 05/22/24 07:21: TSH 1.690 05/23/24 07:21: WBC 13.3 H, RBC 3.58 L, Hgb 10.9 L, Hct 33.6 L, MCV 93.9, MCH 30.4, MCHC 32.4, RDW Std Deviation 45.4 H, RDW Coeff of Omar 13.2, Plt Count 248, MPV 10.1, Immature Gran % (Auto) 0.500, Neut % (Auto) 67.5, Lymph % (Auto) 23.7, Lipscomb % (Auto) 7.4, Eos % (Auto) 0.6, Baso % (Auto) 0.3, Absolute Neuts (auto) 9.0 H, Absolute Lymphs (auto) 3.15, Nucleated RBC % 0, Sodium 140, Potassium 3.3 L, Chloride 108 H, Carbon Dioxide 27.0, Anion Gap 4 L, BUN 14, Creatinine 0.79, Estim Creat Clear Calc 66.93, Est GFR (MDRD) Af Amer 92, Est GFR (MDRD) Non-Af 76, BUN/Creatinine Ratio 17.7, Glucose 91, Calcium 9.2, Total Bilirubin 1.20 H, AST 26, ALT 24, Alkaline Phosphatase 77, Total Protein 6.9, Albumin 3.0 L, Globulin 3.9, Albumin/Globulin Ratio 0.8 L Radiography Diagnostic Testing: Radiology Impression Cholangiogram 05/22/24 11:00 IMPRESSION: Normal operative cholangiogram. Electronically Signed: Wilfrido Olson MD at 12:28 EST , Physical Exam GI GI Narrative: Abdomen- soft, tenderness in the RUQ with palpation. Incisions- umbilical with dry blood noted. Remaining incisions c/d/i. No active bleeding or oozing noted. Assessment & Plan Assessment/Plan (1) Acute cholecystitis: PLAN: I am following this patient in conjunction with Dr. Carty. Labs pending Advance diet to full liquids Patient ready for discharge Charges/Coding Visit Charges Inpatient E&M: 76637 Subs Hosp L1 (no charge; post-op)
--- NOTE | 2024-05-23 08:31 | DS.PCM_ITS ---
Providers Date of Admission: 05/21/24 Primary Care Physician: Dr. Timoteo Lemus MD Reason For Visit: ACUTE CHOLECYSTITIS Diagnosis Discharge Diagnosis (1) Acute cholecystitis: Status: Acute Code(s): K81.0 - Acute cholecystitis Plan: I am following this patient in conjunction with Dr. Carty. Labs pending Advance diet to full liquids Patient ready for discharge Medications at Discharge Home Medications omeprazole 20 mg capsule,delayed release 20 mg PO DAILY 07/16/22 thyroid (pork) 15 mg tablet (Kent Thyroid) 15 mg PO DAILY 07/16/22 thyroid (pork) 30 mg tablet (Kent Thyroid) 30 mg PO BID 07/16/22 cetirizine 10 mg tablet 10 mg PO DAILY PRN allergy symptoms 12/16/22 lactobacillus combination no.4 3 billion cell capsule (Probiotic) 3,000 mmu cells PO QHS 12/16/22 multivitamin (Daily Multi-Vitamin tablet) 1 tab PO DAILY 12/16/22 cholecalciferol (vitamin D3) 25 mcg (1,000 unit) capsule (Vitamin D3) 50 mcg PO DAILY 05/20/24 ondansetron 4 mg disintegrating tablet 4 mg PO TID PRN nausea and vomiting #21 tabs 05/21/24 oxycodone 5 mg tablet 5 mg PO Q6H PRN pain 3 days #12 tabs 05/21/24 acetaminophen 500 mg tablet 500 mg PO Q6H PRN PRN Pain Score 1-10 #0 tabs 05/23/24 oxycodone 5 mg tablet 5 mg PO Q6H PRN PRN Pain Score 6-10 3 days #9 tabs 05/23/24 Hospital Course Operations cholecystecomy Summary of Care Provided Minutes Spent on Discharge: 30 Hospital Course: PAtient is a 69 y/o F who presented with right upper quadrant pain radiating into her back and up into the right chest and neck area. CTA of chest was obtained demonstrating no PE or arterial dissection, cholelithiasis, right middle lobe nodule of the lung. RUQ u/s was obtained demonstrating cholelithiasis and sonographic findings consistent with acute cholecystitis. Dr. Carty performed a laparoscopic cholecystectomy with IOC. Patient tolerated the procedure well. She had an uneventful hospitalization. Upon discharge, patient tolerating a diet. She notes pain is controlled. Discharge instructions were reviewed with the patient prior to discharge. Weight / BMI Weight Weight: 163 lb 9.328 oz Body Mass Index (BMI) 27.1 ABG / Lab / Microbiology Data 05/23/24 07:21 05/23/24 07:21 Laboratory: Laboratory Results - last 24 hr 05/23/24 07:21: WBC 13.3 H, RBC 3.58 L, Hgb 10.9 L, Hct 33.6 L, MCV 93.9, MCH 30.4, MCHC 32.4, RDW Std Deviation 45.4 H, RDW Coeff of Omar 13.2, Plt Count 248, MPV 10.1, Immature Gran % (Auto) 0.500, Neut % (Auto) 67.5, Lymph % (Auto) 23.7, [place] % (Auto) 7.4, Eos % (Auto) 0.6, Baso % (Auto) 0.3, Absolute Neuts (auto) 9.0 H, Absolute Lymphs (auto) 3.15, Nucleated RBC % 0, Sodium 140, Potassium 3.3 L, Chloride 108 H, Carbon Dioxide 27.0, Anion Gap 4 L, BUN 14, Creatinine 0.79, Estim Creat Clear Calc 66.93, Est GFR (MDRD) Af Amer 92, Est GFR (MDRD) Non-Af 76, BUN/Creatinine Ratio 17.7, Glucose 91, Calcium 9.2, Total Bilirubin 1.20 H, AST 26, ALT 24, Alkaline Phosphatase 77, Total Protein 6.9, Albumin 3.0 L, Globulin 3.9, Albumin/Globulin Ratio 0.8 L Radiography Diagnostic Testing: Radiology Impression Cholangiogram 05/22/24 11:00 IMPRESSION: Normal operative cholangiogram. Electronically Signed: Wilfrido Olson MD at 12:28 EST , D/C Instructions Discharge Diet: Light diet - advance as tolerated Discharge Activity: May Not Drive (3-5 days or while taking narcotic pain medication) May shower in (days): 1 Ice area for (Minutes): 20 Lifting Restricted to (Lbs): 15 Lifting Restrictions: No lifting >15 lbs x 2 weeks. No strenuous activity for 4 weeks Call your doctor if your incision/area has: Continuous Slow Oozing, Sudden Increased Bleeding, Increased Pain/ Swelling, Increased Redness, Foul Smelling Discharge and Swelling at the incision site Call your doctor if you observe: Fever of 101 or Higher Suture Line Care: Avoid Pulling/Pushing and Avoid Pinching/Bending Remove Dressing in: 2 days Cleanse incision/area with: Soap & Water DC O2, CPAP, BIPAP Needs Additional Home O2 Discharge instructions: No DC home with Oxygen: No Please Follow Up With: Park Long PA-C When: Please contact our office to schedule a 10-14 day follow-up at [phone], option #2 Meaningful Use Info Meaningful Use Meaningful Use Diagnoses (Choose all that apply): None applicable Ischemic Stroke Statin Dosing Therapy Reference: STATIN DOSE THERAPY REFERENCE: * Patients > 75 years receive moderate or high dose statin therapy. * Patients 75 years or YOUNGER should receive HIGH intensity statin dose unless contraindicated. You will be required to document reason for non-treatment if statin daily dose does not meet guidelines. HIGH DOSE STATIN THERAPY DAILY Atorvastatin > than or = to 40 mg Rosuvastatin > than or = to 20 mg Amlodipine + Atorvastatin > than or = to 2.5/40 mg Ezetimibe + Simvastatin 10/80 mg Simvastatin 80mg Discharge Plan Admission Admit Date/Time: 05/21/24 19:51 Primary Reason for Your Visit: Acute cholecystitis Attending Provider: Norman Carty Primary Care Provider: Timoteo Lemus Instructions Additional Instructions / Restrictions: Cholecystectomy Diet ? Start light with soups and soft bland foods. You may advance diet as tolerated. Activity ? You may drive in 3-5 days but not while taking narcotic pain medication. ? I encourage walking. You may go up steps, one at a time. ? Do not swim or use hot tubs for 2 weeks. ? For comfort, you may use warm compresses or ice as needed for 15-20 minutes at a time. Lifting ? You may lift up to 15 pounds for 2 weeks. No strenuous activity for 4 weeks. Dressings/Incision ? You may shower OVER your plastic dressings in 48 hours from your surgery ? Do NOT tub bathe for 1 week ? Leave plastic dressings on for 2 days. ? When plastic dressings are removed, you will find steri strips. It is okay to continue showering with them in place, pat them dry. ? You may remove steri-strips after 1 week. We recommend getting them soaking wet for easier removal. Medications ? Anesthesia used during surgery and pain medications may cause constipation. I recommend initiating on the day of surgery a fiber supplement like, Metamucil, Citrucel, FiberCon, Benefiber, or a generic form of these medications. 1 heaping tablespoon in water daily. You may continue to utilize any bowel regimen or oral laxatives that you routinely take. ? As long as you are not intolerant to Tylenol, acetaminophen, ibuprofen, Motrin, Advil, Aleve, or similar medications, I would recommend transitioning to these [id number] medicines as soon as possible instead of continued use of narcotic pain medication. Follow up ? You should call [facility] soon after surgery, at [phone] option 2 to make a follow up appointment for 10-14 days after your surgery. Please obtain lab work, CBC and CMP, prior to your appointment. Order has already been placed. There is a lab located on the ground flood of the outpatient pavilion you may go to. Discharge Orders/Prescriptions Prescriptions: New acetaminophen 500 mg Tablet 500 mg PO Q6H PRN PRN (Reason: Pain Score 1-10) Qty: 0 0RF oxycodone 5 mg Tablet 5 mg PO Q6H PRN PRN (Reason: Pain Score 6-10) 3 Days Qty: 9 0RF Continued omeprazole 20 mg capsule,delayed release(DR/EC) 20 mg PO DAILY thyroid (pork) [Kent Thyroid] 30 mg tablet 30 mg PO BID thyroid (pork) [Kent Thyroid] 15 mg tablet 15 mg PO DAILY Patient Comments: take with 30 mg in morning multivitamin [Daily Multi-Vitamin] Tablet 1 tab PO DAILY Probiotic 3 billion cell capsule 3,000 mmu cells PO QHS Rx Instructions: administer with a meal cetirizine 10 mg tablet 10 mg PO DAILY PRN (Reason: allergy symptoms) Patient Comments: take 1 tablet by mouth once daily cholecalciferol (vitamin D3) [Vitamin D3] 25 mcg (1,000 unit) capsule 50 mcg PO DAILY oxycodone 5 mg tablet 5 mg PO Q6H PRN (Reason: pain) 3 Days Qty: 12 0RF Patient Comments: has not filled it yet--05/21/2024 ondansetron 4 mg tablet,disintegrating 4 mg PO TID PRN (Reason: nausea and vomiting) Qty: 21 0RF Patient Comments: has not filled yet--05/21/2024 Other Ambulatory Orders: CBC W/Diff, Automated (Routine) Timeframe: 20240604 Facility: [facility] - Location: Laboratory Ordered By: Park RAMIREZ Comprehensive Metabolic Profil (Routine) Timeframe: 20240604 Facility: [facility] - Location: Laboratory Ordered By: Park RAMIREZ Referrals / Follow Up: Timoteo Lemus MD [Primary Care Provider] - Park Long PA-C [Med Staff - Adv Practice Prof] - 06/04/24 (Please contact our office to schedule an appointment) Disposition Disposition (needs filled in before D/C Order can be placed): Home, Self Care Charges/Coding Visit Charges Inpatient E&M: 73013 Disch Hosp (no charge)
[2024-05-23 09:21] VITALS: BP 113/60; PULSE 81; RESP 16; TEMP 36.7; O2SAT 97
[2024-05-23] MEDS: Pantoprazole Sodium 40 MG Tablet PO (10:51)
[2024-05-23] MEDS: 0.9% Saline Lock 10 ML Syringe IV (10:52)
[2024-05-23] MEDS: Acetaminophen 500 MG Tablet 1000 MG PO (10:52)
[2024-05-23] MEDS: Docusate Sodium 100 MG Capsule PO (10:52)
[2024-05-23 13:41] VITALS: BP 112/56; PULSE 81; RESP 16; TEMP 36.6; O2SAT 99
--- NOTE | 2024-05-23 16:19 | CHAPLAIN ---
Type of Pastoral Visit _x__ Initial Visit ___ Follow-up Visit ___ On-call Visit ___ General Patient Visit ___ Spiritual Assessment ___ Family Conference ___ Bereavement ___ Rapid Response ___ Code Blue ___ Other (describe below) Pastoral Care Referral From _x__ Patient ___ Family ___ Nurse ___ Physician ___ Pack Changer ___ Acid Leveler ___ Other (describe below) Sacrament/Intervention _x__ Active listening ___ Anointing ___ Congregational ___ Bereavement ___ Communion _x__ Patricia exploration ___ _x__ Life review _x__ Prayer ___ Reconciliation ___ Sacrament of Sick ___ Supportive presence ___ Wedding ___ Other (describe below) Pastoral Comments patient and spouse are in the room and are awaiting time for discharge; details about illness, surgery, care, and recovery given; couple just celebrated 50 years of marriage two days ago and recall their union; pt is connected to a taoist and welcomes spiritual care and prayer
== END 2024-05-23 16:00 | disposition home or self-care (01) | DRG 419 ==
LOC: ED 19:52 → MS3 20:18
PROVIDERS: Anesthesiology; Physician Assistant; Admitting Provider Surgery; Emergency Provider Emergency Medicine; PCP Family Medicine; Visit Provider Surgery
PROC: 0FT44ZZ Resection of Gallbladder, Percutaneous Endoscopic Approach (ICD-10-PCS; CPT 47610; principal; 2024-05-22 09:25)
DX: K80.00 Calculus of gallbladder with acute cholecystitis without obstruction (principal); E03.9 Hypothyroidism, unspecified; J44.9 Chronic obstructive pulmonary disease, unspecified; K21.9 Gastro-esophageal reflux disease without esophagitis; Z79.890 Hormone replacement therapy; Z79.899 Other long term (current) drug therapy; Z87.891 Personal history of nicotine dependence
CPT/HCPCS: 36415; 71275; 74300; 76000; 76705; 80048; 80053; 80076; 81001; 83690; 83735; 83880; 84443; 84484; 85025; 85610; 85730; 88304; 93005; 94668; 97802; 99284; 99285; Q9967; A4216; J2405

== ENCOUNTER → 2024-05-21 | Outpatient (CLI) | payer MEDICARE, SELFPAY ==
--- NOTE | 2024-05-21 15:12 | US_ITS ---
STUDY: ABDOMINAL ULTRASOUND - RIGHT UPPER QUADRANT REASON FOR VISIT: Female, 69 years old Cholelithiasis TECHNIQUE: Ultrasound evaluation of the right upper quadrant was performed with real-time and static cuellar-scale imaging. TECHNICAL QUALITY: Adequate. COMPARISON: None. FINDINGS: Liver: The liver measures 13.7 cm. There is mildly increased echogenicity of the liver. The bile ducts are within normal limits. There is hepatic color flow. The direction of portal flow is hepatopetal. There is no demonstrated mass lesion. Gallbladder: Normal distended gallbladder. The gallbladder wall measures 3 mm. There is a positive sonographic Pro''s sign. There is no pericholecystic fluid. There are multiple gallstones and findings consistent with adenomyomatosis Common Bile Duct (C.B.D.): The common bile duct measures 3 mm. Pancreas: Suboptimally visualized but no gross abnormality. . Right Kidney: Normal size of the right kidney. The right kidney measures 10.7 x 5.5 x 4.2 cm. Normal renal cortex. The right cortex measures 1.2 cm. There is no demonstrated renal mass or cyst. There is no right hydronephrosis. US/Gallbladder IMPRESSION: Cholelithiasis and sonographic findings consistent with acute cholecystitis Electronically Signed: Nikko Simon MD at 16:18 EST ,
== END | disposition home or self-care (01) ==
PROVIDERS: PCP Family Medicine; Referring Provider Emergency Medicine; Visit Provider Emergency Medicine
DX: K80.20 Calculus of gallbladder without cholecystitis without obstruction (principal)
CPT/HCPCS: 76705

== ENCOUNTER → 2024-06-04 | Outpatient (CLI) | payer MEDICARE, SELFPAY ==
[2024-06-04 12:34] LABS: Absolute Lymphocyte Count 2.83 X10^3/uL (0.83-4.51); Basophil# 0.06 X10^3/uL; Basophil% 0.8 % (0-1); Eosinophil# 0.18 X10^3/uL; Eosinophils% 2.3 % (0-5); Hematocrit 37.8 % (37-47); Hemoglobin 12.4 g/dL (12.0-15.0); Lymphocyte # 2.83 X10^3/ul (0.83-4.51); Lymphocyte % 36.7 % (19-41); Mean Corp Hgb Conc 32.8 g/dL (32-36); Mean Corpuscular Hgb 30.7 pg (27.0-32.0); Mean Corpuscular Volume 93.6 fL (81-99); Mean Platelet Vol. 10.5 fl (6.2-12.0); Monocyte# 0.58 X10^3/uL; Monocyte% 7.5 % (0-10); NRBC Flagged by Analyzer 0 % (0-5); Neutrophil # 4.03 X10^3/uL (2.7-7.7); Neutrophil % 52.3 % (47-70); Platelet Count 318 K/mm3 (150-450); RBC Distribution Width CV 12.6 % (11.6-14.6); RBC Distribution Width SD 43.8 fl (35.1-43.9); Red Blood Count 4.04 M/mm3 (4.2-5.4); White Blood Count 7.7 K/mm3 (4.4-11.0)
[2024-06-04 12:48] LABS: ALB/GLOB Ratio 0.7 RATIO (0.9-2.4); AST(SGOT) 20 U/L (15-37); Alanine Aminotransfer ALT/SGPT 23 U/L (13-56); Albumin, Serum 3.5 g/dL (3.2-5.0); Alkaline Phosphatase 108 U/L (45-117); Anion Gap 5 (5-15); BUN 19 mg/dL (7-18); BUN/Creat Ratio 24.9 RATIO (10-20); Calcium,Total 9.4 mg/dL (8.5-10.1); Chloride 104 mmol/L (98-107); Creatinine, Serum 0.76 mg/dL (0.55-1.02); EST Glomerular Filtration Rate 80 mL/min (>60); Est Glom Filt Rate - Afr Amer 96 mL/min (>60); Globulin 4.7 g/dL (2.2-4.2); Glucose 100 mg/dL (74-106); Protein, Total 8.2 g/dL (6.4-8.2); Sodium Level 137 mmol/L (136-145)
== END | disposition home or self-care (01) ==
PROVIDERS: PCP Family Medicine; Referring Provider Physician Assistant; Visit Provider Physician Assistant
DX: K81.0 Acute cholecystitis (principal); D72.829 Elevated white blood cell count, unspecified
CPT/HCPCS: 36415; 80053; 85025

== ENCOUNTER → 2025-01-16 | Outpatient (CLI) | payer MEDICARE, SELFPAY ==
--- NOTE | 2025-01-16 08:44 | RAD_ITS ---
EXAM: Double contrast upper GI series and single and double contrast esophagram. CLINICAL HISTORY: Dysphagia. COMPARISON: None. TECHNIQUE: Double contrast upper GI series and single and double contrast esophagram. Fluoroscopy time: 346 seconds. Dose: 91.27 mGy. FINDINGS: Right upper quadrant abdominal surgical clips are seen. No aspiration was seen during this examination. Within the esophagus, no area of persistent narrowing is seen. No mucosal changes are identified. Intermittent mid to distal esophageal spasm is seen. During the time of imaging, gastroesophageal reflux was not visualized. SEVERE DELAY in passage of the 13 mm barium tablet into the stomach was seen. No abnormality of the stomach or duodenum is identified. RAD/Upper GI w/BA Swallow IMPRESSION: 1. Intermittent mid to distal esophageal spasm. 2. Severe delay in passage of the 13 mm barium tablet from the esophagus into t he stomach was seen. 3. No aspiration was identified during the time of this examination. Reading Location: [place] [id number]
== END | disposition home or self-care (01) ==
PROVIDERS: PCP Family Medicine; Referring Provider Surgery; Visit Provider Surgery
DX: R10.13 Epigastric pain (principal); E04.1 Nontoxic single thyroid nodule
CPT/HCPCS: 74246

== ENCOUNTER 2025-03-29 07:59 | Day surgery (SDC) | payer MEDICARE, SELFPAY ==
[2025-03-29] MEDS: Lidocaine Jelly 2% 20 ML Syringe (URO-JET) 1 APPLIC (08:15)
[2025-03-29 09:04] VITALS: BP 131/95; PULSE 81; TEMP 37; O2SAT 95
== END 2025-03-29 08:59 | disposition home or self-care (01) ==
PROVIDERS: PCP Family Medicine; Referring Provider Family Medicine; Visit Provider Surgery
PROC: F00ZJWZ Instrumental Swallowing and Oral Function Assessment using Swallowing Equipment (ICD-10-PCS; CPT 43235; principal; 2025-03-29 07:55)
DX: K21.9 Gastro-esophageal reflux disease without esophagitis (principal)
CPT/HCPCS: 91010